=== PATIENT | male | born 1995 | race Caucasian/White ===

== ENCOUNTER 2016-12-16 00:46 | Emergency (ER) | payer MEDICAID ==
--- NOTE | 2016-12-16 01:19 | EDM.PDOC ---
ED HPI RENAL/ - General Chief Complaint: Genitourinary Problem Stated Complaint: BACK PAIN Time Seen by Provider: 12/16/16 00:51 Source of Information: Reports: Patient History Limitations: Reports: No limitations - History of Present Illness INITIAL COMMENTS - FREE TEXT/NARRATIVE: HISTORY AND PHYSICAL: History of present illness: [Weight 1-year-old male with a past medical history of anxiety previously treated now presents emergency department complaining of gross hematuria. Patient has been in his baseline state of health until around 6 PM when he appreciated urine he states looked like red Herrera-Aid. He denies any back or abdominal pain however he reports very mild dysuria/ penile burning with urination. Patient has normal urinary frequency without urgency and is in no flank pain whatsoever per no fevers chills sweats or shaking chills. He is not immunocompromised in any way. No prior history of UTI urinary workup or abnormality. Patient has no history of coagulopathy or blood thinners and no abdominal or genitourinary trauma recently. Review of systems: As per history of present illness and below otherwise all systems reviewed and negative. Past medical history: As per history of present illness and as reviewed below otherwise noncontributory. Surgical history: As per history of present illness and as reviewed below otherwise noncontributory. Social history: No reported history of drug or alcohol abuse. Family history: As per history of present illness and as reviewed below otherwise noncontributory. Physical exam: Well-appearing 21-year-old male no acute distress no pallor alert communicative, keeps eyes closed during history of present illness and exam HEENT: Atraumatic, normocephalic, pupils reactive, negative for conjunctival pallor or scleral icterus, mucous membranes moist, throat clear, neck supple, nontender, trachea midline. Lungs: Clear to auscultation, breath sounds equal bilaterally, chest nontender. Heart: S1S2, regular, negative for clicks, rubs, or JVD. Abdomen: Soft, nondistended, nontender. Negative for masses or hepatosplenomegaly. Negative for costovertebral tenderness. Pelvis: Stable nontender. Genitourinary: Normal external genitalia. Nontender no penile discharge or bleeding. No swelling or skin abnormality. Rectal: Deferred. Extremities: Atraumatic, negative for cords or calf pain. Neurovascular unremarkable. Neuro: Awake, alert, oriented. Cranial nerves grossly unremarkable. Cerebellum unremarkable. Motor and sensory unremarkable throughout. Exam nonfocal. Diagnostics: [] Therapeutics: [] Impression: [] Plan: [] Definitive disposition and diagnosis as appropriate pending reevaluation and review of above. - Related Data Allergies/ADRs: Allergies Allergy/AdvReac Type Severity Reaction Status Date / Time No Known Allergies Allergy Verified 12/16/16 00:57 Home Meds: Home Meds . [No Known Home Meds] 08/18/15 [History] Past Medical History - Past Health History Medical/Surgical History: Denies Medical/Surgical History HEENT History: Reports: None Cardiovascular History: Reports: None Other Cardiovascular History: " heart condition" Respiratory History: Reports: None Gastrointestinal History: Reports: Cholelithiasis Other Gastrointestinal History: occasional heartburn Genitourinary History: Reports: None Musculoskeletal History: Reports: None Neurological History: Reports: None Psychiatric History: Reports: Anxiety Endocrine/Metabolic History: Reports: None Hematologic History: Reports: None Immunologic History: Reports: None Oncologic (Cancer) History: Reports: None Dermatologic History: Reports: None - Infectious Disease History Infectious Disease History: Reports: None - Past Surgical History Head Surgeries/Procedures: Reports: None Social & Family History - Family History Family Medical History: Noncontributory - Tobacco Use Smoking Status *Q: Former Smoker Years of Tobacco use: 2 Packs/Tins Daily: 0.2 - Caffeine Use Caffeine Use: Reports: Soda Caffeine Use Comment: 1-2 drinks/day - Alcohol Use Days Per Week of Alcohol Use: 5 Number of Drinks Per Day: 2 Total Drinks Per Week: 10 - Recreational Drug Use Recreational Drug Use: No Drug Use in Last 12 Months: No ED ROS GENERAL - Review of Systems Review Of Systems: See Below (For history of present illness) ED EXAM, RENAL/ - Physical Exam Exam: See Below (Per history of present illness) Course - Vital Signs Text/Narrative:: Signs and symptoms consistent with gross hematuria the patient with no prior urinary history. No gross hematuria in the emergency department. Vital signs are unremarkable patient is well-appearing with a nontender abdomen and no CVA tenderness. History and exam are not consistent with ureteral colic at all. He has no evidence of genital trauma. Patient is not quite for peptic on no blood thinners. UA as large occult microscopic blood, not consistent with infection. Hemoglobin unremarkable. No further workup or treatment indicated. Patient aware to follow up with PCP for reevaluation of urinalysis and referral to urology as needed patient given the number of Dr. Kimberly Holder, the urologist to arrange outpatient followup. No Further workup or treatment indicated at this time, Patient agrees with outpatient followup. Strict return precautions given Last Recorded V/S: Last Vital Signs Temp 36.4 C 12/16/16 00:57 Pulse 86 12/16/16 00:57 Resp 16 12/16/16 00:57 BP 132/71 12/16/16 00:57 Pulse Ox 99 12/16/16 00:57 - Orders/Labs/Meds Labs: Laboratory Tests 12/16/16 12/16/16 12/16/16 Range/Units 01:00 01:00 01:05 Hgb 16.7 (13.0-17.0) g/dL Hct 48.0 (38.0-50.0) % Sodium 145 (136-146) mmol/L Potassium 3.6 (3.5-5.1) mmol/L Chloride 109 (98-110) mmol/L Carbon Dioxide 23 (21-31) mmol/L BUN 9 (6.0-23.0) mg/dL Creatinine 0.9 (0.6-1.5) mg/dL Est Cr Clr Drug Dosing 108.17 mL/min Estimated GFR (MDRD) > 60.0 ml/min Glucose 76 (60-110) mg/dL Calcium 9.4 (8.8-10.8) mg/dL Urine Color DARK YELLOW Urine Appearance SLT CLOUDY Urine pH 5.5 (5.0-8.0) Ur Specific [place] 1.020 (1.001-1.035) Urine Protein TRACE (NEGATIVE) mg/dL Urine Glucose (UA) NEGATIVE (NEGATIVE) mg/dL Urine Ketones NEGATIVE (NEGATIVE) mg/dL Urine Occult Blood LARGE H (NEGATIVE) Urine Nitrite NEGATIVE (NEGATIVE) Urine Bilirubin NEGATIVE (NEGATIVE) Urine Urobilinogen 0.2 (<2.0) EU/dL Ur Leukocyte Esterase NEGATIVE (NEGATIVE) Urine RBC TOO NUMBEROUS TO CT (0-2/HPF) Urine WBC 0-3 (0-5/HPF) Ur Epithelial Cells RARE (NONE-FEW) Urine Bacteria OCCASIONAL (NEGATIVE) Departure - Departure Time of Disposition: 02:03 Disposition: Home, Self-Care 01 Condition: good Clinical Impression: Hematuria Instructions: Hematuria, Adult Referrals: PCP,None [Primary Care Provider] - Forms: ED Department Discharge Additional Instructions: Signs and symptoms consistent with mild gross hematuria now microscopic in a stable patient is well-appearing with no anemia. No evidence of infection or trauma. Hemoglobin and hematocrit pending to rule out evolving anemia basic metabolic panel unremarkable with normal kidney function. No further workup or treatment indicated at this time. Patient aware of critical importance of close follow up with PCP for reevaluation and repeat urinalysis and referral to urology as needed for further workup and definitive diagnosis. He and his spouse agree with outpatient followup. Strict return precautions given. The following information is given to patients seen in the emergency department who are being discharged to home. This information is to outline your options for follow-up care. We provide all patients seen in our emergency department with a follow-up referral. The need for follow-up, as well as the timing and circumstances, are variable depending upon the specifics of your emergency department visit. If you don't have a primary care physician on staff, we will provide you with a referral. We always advise you to contact your personal physician following an emergency department visit to inform them of the circumstance of the visit and for follow-up with them and/or the need for any referrals to a consulting specialist. The emergency department will also refer you to a specialist when appropriate. This referral assures that you have the opportunity for follow-up care with a specialist. All of these measure are taken in an effort to provide you with optimal care, which includes your follow-up. Under all circumstances we always encourage you to contact your private physician who remains a resource for coordinating your care. When calling for follow-up care, please make the office aware that this follow-up is from your recent emergency room visit. If for any reason you are refused follow-up, please contact the [facility] Emergency Department at and asked to speak to the emergency department charge nurse.
[2016-12-16 02:00] LABS: CHLORIDE,CL 109 mmol/L (98-110); SODIUM,NA 145 mmol/L (136-146)
[2016-12-16 02:28] VITALS: BP 106/60
== END 2016-12-16 02:25 | disposition home or self-care (01) ==
LOC: MW.ED 00:46
DX: R31.0 Gross hematuria (principal); F41.9 Anxiety disorder, unspecified; Z87.891 Personal history of nicotine dependence
CPT/HCPCS: 36415; 80048; 81001; 85014; 85018; 99282; 99283

== ENCOUNTER → 2016-12-17 | Outpatient (CLI) | payer MEDICAID ==
[~2016-12-17] MED LIST: Iopamidol 755 MG/ML 500 ML Multipack Bottle IVPUSH STA
[2016-12-17 14:10] LABS: CHLORIDE,CL 105 mmol/L (98-110); SODIUM,NA 142 mmol/L (136-146)
--- NOTE | 2016-12-17 16:01 | CT ---
CT of the abdomen and pelvis with contrast. HISTORY: Generalized abdominal pain TECHNIQUE: Axial CT images were obtained of the abdomen and pelvis following administration of 100 m L of Isovue-370 in left antecubital fossa without complication. Coronal and sagittal reconstructions obtained. FINDINGS: The lung bases are clear, no pleural effusion. The liver, spleen, adrenal glands, and pancreas appear normal. Cholelithiasis without evidence of ch olecystitis. No bulky retroperitoneal lymphadenopathy or abdominal ascites. There is a 3 to 4 mm stone at the right ureteropelvic junction with minimal proximal hydronephrosis. The kidneys enhance and function symmetrically. The large and small bowel are normal in caliber without evidence of obstruction. The appendix is nor mal. The urinary bladder is normal. There is no bulky pelvic lymphadenopathy or free pelvic fluid. There are no suspicious osseous abnormalities identified. IMPRESSION: 1. There is a 3 to 4 mm stone within the proximal right ureter with minimal proximal hydronephrosis. 2. Cholelithiasis without evidence of cholecystitis.
== END ==
LOC: MW.CHRC 13:30
PROVIDERS: ATTEND Family Medicine
DX: R31.9 Hematuria, unspecified (principal); R10.84 Generalized abdominal pain; K80.20 Calculus of gallbladder without cholecystitis without obstruction
CPT/HCPCS: 36415; 74177; 80053; 81001; 82150; 82550; 83690; 85025; Q9967

== ENCOUNTER → 2017-01-03 | Outpatient (CLI) | payer MEDICAID ==
--- NOTE | 2017-01-03 16:18 | CT ---
EXAM DATE: 01/03/17 PATIENT'S AGE: 21 Patient: SAHARA CHAVEZ Facility: [place], [place] Site . Site : 1995 Study: CT Abdomen/Pelvis [id number]/10/2017 12:34:01 PM Ordering Physician: Kami Love Final Report: INDICATION: urinary calculus CT ABDOMEN AND PELVIS WITHOUT CONTRAST TECHNIQUE: Multidetector CT imaging was performed through the abdomen and pelvis without intravenous contrast administration. Coronal and sagittal reconstructions were generated. COMPARISON: 12/17/2016 CT abdomen and pelvis. FINDINGS: Lower chest: Lung bases are clear. Liver: Within normal limits. Gallbladder and bile ducts: Cholelithiasis, as before, without evidence of cholecystitis. No biliary dilation identified. Pancreas: Unremarkable. Spleen: Normal. Adrenals: No nodules or masses. Kidneys, ureters, and urinary bladder: The 3-4 millimeter stone in the proximal right ureter has moved approximately 2 centimeters inferiorly compared to the previous exam. There has been no significant change in very mild dilation of the right intrarenal collecting system and right renal pelvis. A tiny nonobstructing 2 millimeter stone is noted in the lower pole of the right kidney. No renal masses or left hydronephrosis. No bladder mass or definite wall thickening. Gastrointestinal tract: Normal caliber bowel without wall thickening. The appendix is normal. Vascular structures: Normal for age. Peritoneum: No free air, abscess, or significant free fluid. Lymph nodes: No pathologically enlarged nodes identified. Reproductive organs: No pelvic masses. Bones: Normal for age. IMPRESSION: 1. Slight inferior movement of mildly obstructing 3-4 millimeter stone within the proximal right ureter. Unchanged mild right hydronephrosis. 2. Nonobstructing 2 millimeter right intrarenal stone. 3. Cholelithiasis. JUDY NEFF MD [employer] Dictated by Seymour Neff MD @ 01/03/2017 12:55:58 PM Dictated by: Seymour Neff MD @ 01/03/2017 12:56:40 (Electronic Signature) Report Signed by Proxy and Original Signed Document filed in the Medical Record. [facility]
== END ==
LOC: MW.CHFP 10:25
PROVIDERS: ATTEND Nurse Practitioner Family
DX: N20.9 Urinary calculus, unspecified (principal); N20.1 Calculus of ureter; N13.30 Unspecified hydronephrosis; N20.0 Calculus of kidney; K80.20 Calculus of gallbladder without cholecystitis without obstruction
CPT/HCPCS: 36415; 74176; 74176-26; 81001; 85025

== ENCOUNTER 2017-01-11 07:59 | Day surgery (SDC) | payer SELFPAY ==
[~2017-01-11 07:59] MED LIST changes: -Iopamidol 755 MG/ML 500 ML Multipack Bottle IVPUSH STA; +Lactated Ringers 1,000 ML IV SCH; +ceFAZolin 1 GM in Premix Bag 1 BAG IV ONE
--- NOTE | 2017-01-11 09:06 | PCM.PREANE ---
Preanesthetic Assessment - Procedure Proposed Procedure: cystoscopy, ureteroscopy with stone retrieval - Anesthesia/Transfusion/Family Hx Anesthesia History: No Prior Anesthesia Family History of Anesthesia Reaction: No Transfusion History: No Prior Transfusion(s) Intubation History: Unknown - Review of Systems General: Other (pain due to stone - on PO meds for last weeks) Pulmonary: No Symptoms Cardiovascular: No Symptoms Gastrointestinal: No symptoms Neurological: No Symptoms Other: Reports: Anxiety - Physical Assessment O2 Sat by Pulse Oximetry: 100 Respiratory Rate: 18 Vital Signs: Last Vital Signs Temp 99.0 F 01/11/17 08:30 Pulse 81 01/11/17 08:30 Resp 18 01/11/17 08:30 BP 113/63 01/11/17 08:30 Pulse Ox 100 01/11/17 08:30 Height: 6 ft Weight: 130 lb ASA Class: 2 Mental Status: Alert & Oriented x3 Airway Class: Mallampati = 1 Dentition: Reports: Normal Dentition Thyro-Mental Finger Breadths: 3 Mouth Opening Finger Breadths: 3 ROM/Head Extension: Full Lungs: Clear to auscultation, Normal respiratory effort Cardiovascular: Regular Rate, Regular Rhythm, No Murmurs - Allergies Allergies/Adverse Reactions: Allergies Allergy/AdvReac Type Severity Reaction Status Date / Time No Known Allergies Allergy Verified 01/10/17 16:54 - Blood Blood Available: No Product(s) Available: None - Acknowledgements Anesthesia Type Planned: General Anesthesia (LMA vs OETT) Pt an Appropriate Candidate for the Planned Anesthesia: Yes Alternatives and Risks of Anesthesia Discussed w Pt/Guardian: Yes Pt/Guardian Understands and Agrees with Anesthesia Plan: Yes Additional Comments: Patients in another hospital having urinary tract problems surgically treated today. PreAnesthesia Questionnaire - Past Health History Medical/Surgical History: Denies Medical/Surgical History HEENT History: Reports: None Cardiovascular History: Reports: None Other Cardiovascular History: " heart condition" Respiratory History: Reports: None Gastrointestinal History: Reports: None Other Gastrointestinal History: occasional heartburn Genitourinary History: Reports: None Musculoskeletal History: Reports: None Neurological History: Reports: None Psychiatric History: Reports: Anxiety Endocrine/Metabolic History: Reports: None Hematologic History: Reports: None Immunologic History: Reports: None Oncologic (Cancer) History: Reports: None Dermatologic History: Reports: None - Infectious Disease History Infectious Disease History: Reports: None - Past Surgical History Head Surgeries/Procedures: Reports: None HEENT Surgical History: Reports: None Cardiovascular Surgical History: Reports: None Respiratory Surgical History: Reports: None GI Surgical History: Reports: None Male Surgical History: Reports: None Endocrine Surgical History: Reports: None Neurological Surgical History: Reports: None Musculoskeletal Surgical History: Reports: None Oncologic Surgical History: Reports: None Dermatological Surgical History: Reports: None - SUBSTANCE USE Smoking Status *Q: Former Smoker Tobacco Use Within Last Twelve Months: Cigarettes Days Per Week of Alcohol Use: 5 Number of Drinks Per Day: 2 Total Drinks Per Week: 10 Recreational Drug Use History: No - HOME MEDS Home Medications: Home Meds Tamsulosin HCl [Flomax] 0.4 mg PO DAILY 01/10/17 [History] oxyCODONE HCl/Acetaminophen [Percocet 5-325 mg Tablet] 1 tab PO ASDIRECTED PRN 01/10/17 [History] - CURRENT (IN HOUSE) MEDS Current Meds: Current Medications Lactated Ringer's (Ringers, Lactated) 1,000 mls @ 100 mls/hr IV ASDIRECTED [facility] Discontinued Medications Cefazolin Sodium/Dextrose 1 gm (/ Premix) 50 mls @ 100 mls/hr IV ONCALL [facility] Stop: 01/11/17 00:30
[2017-01-11] MEDS ORDERED: Midazolam 1 MG/ML 2 ML SDV ONE (09:07)
[2017-01-11] MEDS ORDERED: Propofol 200 MG/20 ML SDV ONE (09:07)
[2017-01-11] MEDS ORDERED: Lidocaine 2% 5 ML SDV ONE (09:07)
[2017-01-11] MEDS ORDERED: fentaNYL 250 MCG/5 ML SDV ONE (09:07)
[2017-01-11] MEDS ORDERED: Iopamidol 408 MG/ML 50 ML SDV ONE (10:07)
[2017-01-11] MEDS: fentaNYL 100 MCG/2 ML SDV IVPUSH PRN ×4 (11:30→11:50)
--- NOTE | 2017-01-11 11:55 | PCM.POSTAN ---
POST ANESTHESIA ASSESSMENT - MENTAL STATUS Mental Status: alert, oriented - RESPIRATORY Respiratory Status: respiratory rate WNL, airway patent, O2 saturation stable - CARDIOVASCULAR CV Status: pulse rate WNL, blood pressure stable - GASTROINTESTINAL GI Status: no symptoms - PAIN Pain Score: 3 (stent irritation) - POST OP HYDRATION Hydration Status: adequate & stable - OBSERVATIONS Free Text/Narrative:: Transfer to phase II recovery.
[2017-01-11] MEDS ORDERED: Acetaminophen/HYDROcodone 325-10 MG Tab PO PRN (12:15)
--- NOTE | 2017-01-11 13:29 | PCM48HPAN ---
Post Anesthesia Note - EVALUATION WITHIN 48HRS OF ANESTHETIC Vital Signs in Normal Range: Yes Patient Participated in Evaluation: Yes Respiratory Function Stable: Yes Airway Patent: Yes Cardiovascular Function Stable: Yes Hydration Status Stable: Yes Pain Control Satisfactory: Yes (Understands he will need some analgesia for the next few days) Nausea and Vomiting Control Satisfactory: Yes Mental Status Recovered: Yes - COMMENTS/OBSERVATIONS Free Text/Narrative:: Mother here to take him home.
--- NOTE | 2017-01-11 13:46 | CR ---
EXAMINATION: Ureteroscopy HISTORY: Stent placement COMPARISON: CT dated 01/03/2017 TECHNIQUE: Single image provided FINDINGS/IMPRESSION: Single operative control films demonstrate selection of the right renal collect ing system. There is a faint calcification projecting over the lower pole of the right kidney.
[2017-01-11 13:55] VITALS: BP 121/80
--- NOTE | 2017-01-11 15:01 | OR ---
SURGEON: Kimberly Holder M.D. DATE OF PROCEDURE: 01/11/2017 PREOPERATIVE DIAGNOSIS: Right upper ureteral stone. POSTOPERATIVE DIAGNOSIS: Right renal pelvis stone. PROCEDURES: Cystoscopy, double-J stent placement. DESCRIPTION OF PROCEDURE: The patient was given general anesthesia, placed in dorsal lithotomy position, prepped and draped in sterile drapes. Cystourethroscopy was done that was normal. A guidewire was advanced in the right ureter all the way up into the renal pelvis over which a 6-Micron[place] 26 cm double-J stent was placed. Position was confirmed with fluoroscopy. The bladder was emptied and the patient was moved to recovery room in good condition. PLAN: I will bring him to the office next week and schedule his next procedure which would have to be ureteroscopy and stone removal. CHIDI / EVI /[id number]
== END 2017-01-11 13:30 | disposition home or self-care (01) ==
LOC: MW.SDS 07:59
PROVIDERS: ATTEND Urology
PROC: 0T768DZ Dilation of Right Ureter with Intraluminal Device, Via Natural or Artificial Opening Endoscopic (ICD-10-PCS; principal; 2017-01-11)
DX: N20.1 Calculus of ureter (principal); F41.9 Anxiety disorder, unspecified; Z87.891 Personal history of nicotine dependence; Z79.899 Other long term (current) drug therapy
CPT/HCPCS: 52332; 76000; A9270; C1769; C2625; J0690; J2250; J3010; J7120; 00910; J2704; Q9966

== ENCOUNTER 2017-01-20 06:25 | Day surgery (SDC) | payer SELFPAY ==
[~2017-01-20 06:25] MED LIST changes: +Ciprofloxacin in D5W 400 MG in Premix Bag 1 BAG IV SCH; -ceFAZolin 1 GM in Premix Bag 1 BAG IV ONE
--- NOTE | 2017-01-20 07:18 | PCM.PREANE ---
Preanesthetic Assessment - Anesthesia/Transfusion/Family Hx Anesthesia History: Prior Anesthesia Without Reaction (Stent placement week or so ago) Family History of Anesthesia Reaction: No Transfusion History: No Prior Transfusion(s) Intubation History: Unknown - Review of Systems General: No Symptoms Pulmonary: No Symptoms Cardiovascular: No Symptoms Gastrointestinal: Abdominal pain (due to stone/stent) Neurological: No Symptoms Other: Reports: None - Physical Assessment NPO Status Date: 01/19/17 NPO Status Time: 22:00 O2 Sat by Pulse Oximetry: 100 Respiratory Rate: 16 Vital Signs: Last Vital Signs Temp 98.2 F 01/20/17 06:30 Pulse 70 01/20/17 06:30 Resp 16 01/20/17 06:30 BP 115/78 01/20/17 06:30 Pulse Ox 100 01/20/17 06:30 Height: 5 ft 11 in Weight: 129 lb ASA Class: 2 Mental Status: Alert & Oriented x3 Airway Class: Mallampati = 1 Dentition: Reports: Normal Dentition Thyro-Mental Finger Breadths: 3 Mouth Opening Finger Breadths: 3 ROM/Head Extension: Full Lungs: Clear to auscultation, Normal respiratory effort Cardiovascular: Regular Rate, Regular Rhythm, No Murmurs - Allergies Allergies/Adverse Reactions: Allergies Allergy/AdvReac Type Severity Reaction Status Date / Time No Known Allergies Allergy Verified 01/18/17 10:16 - Blood Blood Available: No Product(s) Available: None - Anesthesia Plan Pre-Op Medication Ordered: None - Acknowledgements Anesthesia Type Planned: General Anesthesia (LMA) Pt an Appropriate Candidate for the Planned Anesthesia: Yes Alternatives and Risks of Anesthesia Discussed w Pt/Guardian: Yes Pt/Guardian Understands and Agrees with Anesthesia Plan: Yes PreAnesthesia Questionnaire - Past Health History Medical/Surgical History: Denies Medical/Surgical History HEENT History: Reports: None Cardiovascular History: Reports: None Other Cardiovascular History: " heart condition" Respiratory History: Reports: None Gastrointestinal History: Reports: None Other Gastrointestinal History: occasional heartburn Genitourinary History: Reports: Renal calculus Musculoskeletal History: Reports: None Neurological History: Reports: None Psychiatric History: Reports: Anxiety Endocrine/Metabolic History: Reports: None Hematologic History: Reports: None Immunologic History: Reports: None Oncologic (Cancer) History: Reports: None Dermatologic History: Reports: None - Infectious Disease History Infectious Disease History: Reports: None - Past Surgical History Head Surgeries/Procedures: Reports: None HEENT Surgical History: Reports: None Cardiovascular Surgical History: Reports: None Respiratory Surgical History: Reports: None GI Surgical History: Reports: None Male Surgical History: Reports: None Other Male Surgeries/Procedures: cysto, placement of double J stent Endocrine Surgical History: Reports: None Neurological Surgical History: Reports: None Musculoskeletal Surgical History: Reports: None Oncologic Surgical History: Reports: None Dermatological Surgical History: Reports: None - SUBSTANCE USE Smoking Status *Q: Former Smoker Tobacco Use Within Last Twelve Months: Cigarettes Days Per Week of Alcohol Use: 5 Number of Drinks Per Day: 2 Total Drinks Per Week: 10 Recreational Drug Use History: No - HOME MEDS Home Medications: Home Meds Tamsulosin HCl [Flomax] 0.4 mg PO DAILY 01/10/17 [History] traMADol [Ultram] 50 mg PO Q6H PRN 01/18/17 [History] - CURRENT (IN HOUSE) MEDS Current Meds: Current Medications Ciprofloxacin/Dextrose 400 mg/ (Premix) 200 mls @ 200 mls/hr IV ONCALL [facility] Last Admin: 01/20/17 06:18 Dose: 200 mls/hr Lactated Ringer's (Ringers, Lactated) 1,000 mls @ 100 mls/hr IV ASDIRECTED [facility] Last Admin: 01/20/17 06:18 Dose: 100 mls/hr
[2017-01-20] MEDS ORDERED: Ondansetron 4 MG/2 ML SDV ONE (07:21)
[2017-01-20] MEDS ORDERED: Lidocaine 2% 5 ML SDV ONE (07:21)
[2017-01-20] MEDS ORDERED: fentaNYL 250 MCG/5 ML SDV ONE (07:22)
[2017-01-20] MEDS ORDERED: Propofol 200 MG/20 ML SDV ONE (07:22)
[2017-01-20] MEDS ORDERED: Midazolam 1 MG/ML 2 ML SDV ONE (07:22)
[2017-01-20] MEDS ORDERED: ePHEDrine 50 MG/ML SDV ONE (08:38)
[2017-01-20] MEDS ORDERED: Ketorolac 30 MG/ML SDV IVPUSH ONE (09:15)
[2017-01-20] MEDS: fentaNYL 100 MCG/2 ML SDV IVPUSH PRN ×4 (09:25→09:44)
[2017-01-20] MEDS ORDERED: Morphine 10 MG/ML Syringe ONE (09:55)
[2017-01-20] MEDS: Morphine 10 MG/ML Syringe IVPUSH PRN ×3 (09:57→10:12)
[2017-01-20 11:23] VITALS: BP 124/68
--- NOTE | 2017-01-20 14:08 | OR ---
SURGEON: Kimberly Holder M.D. DATE OF PROCEDURE: 01/20/2017 PREOPERATIVE DIAGNOSIS: Right ureteral stone. POSTOPERATIVE DIAGNOSIS: Right ureteral stone. PROCEDURE: Right ureteroscopy and stone removal. DESCRIPTION OF PROCEDURE: The patient was given general anesthesia, placed in dorsal lithotomy position, prepped and draped in sterile drapes. Cystourethroscopy was done. The double-J stent was removed that was on the right side. A guidewire and a Glidewire were both introduced up into the renal pelvis under fluoroscopy. The flexible ureteroscope was advanced all the way up to the stone, which was in the mid ureter. The Zero tip basket was used to snag the stone and it was pulled out relatively easily. The guidewire was still in place. The flexible ureteroscope was advanced over the guidewire, 4 additional stones in the kidney and none were visualized. With that done, the procedure was terminated and the patient was sent to recovery room in good condition. CHIDI / EVI /[id number]
--- NOTE | 2017-01-24 13:01 | CR ---
EXAMINATION: Right ureteroscopy HISTORY: Stone removal COMPARISON: Comparison CT dated 01/03/2017 TECHNIQUE: Single image FINDINGS/IMPRESSION: Operative control films demonstrate selection of the right ureter. There is a c alcification noted adjacent to the mid to proximal right ureter, likely correlating to a gallstone n oted on the prior CT.
== END 2017-01-20 11:15 | disposition home or self-care (01) ==
LOC: MW.SDS 06:25
PROVIDERS: ATTEND Urology
PROC: 0TC68ZZ Extirpation of Matter from Right Ureter, Via Natural or Artificial Opening Endoscopic (ICD-10-PCS; principal; 2017-01-20)
DX: N20.1 Calculus of ureter (principal); Z87.442 Personal history of urinary calculi; Z87.891 Personal history of nicotine dependence; Z98.890 Other specified postprocedural states; Z79.899 Other long term (current) drug therapy
CPT/HCPCS: 52352; 76000; C1769; J0744; J1885; J2250; J2270; J2405; J3010; J7120; 00910; 88300; J2704

== ENCOUNTER 2017-06-08 19:14 | Emergency (ER) | payer SELFPAY ==
--- NOTE | 2017-06-08 19:51 | EDM.PDOC ---
ED HPI GENERAL MEDICAL PROBLEM - General Chief Complaint: Fever Stated Complaint: FEVER/CONGESTION Time Seen by Provider: 06/08/17 19:46 Source of Information: Reports: Patient History Limitations: Reports: No Limitations - History of Present Illness INITIAL COMMENTS - FREE TEXT/NARRATIVE: HISTORY AND PHYSICAL: History of present illness: Patient is a 21-year-old male who presents to the emergency room today with complaints of a dry cough, fever, sinus congestion 1 week. Patient reports he has been taking [id number] sinus and cold medications without much relief. States over the past week his sinus pressure has progressively got worse. Denies any ear pain or throat pain, abdominal pain, nausea or vomiting. Denies any chest pain or shortness of breath. He does not have any previous respiratory illness. Review of systems: As per history of present illness and below otherwise all systems reviewed and negative. Past medical history: As per history of present illness and as reviewed below otherwise noncontributory. Surgical history: As per history of present illness and as reviewed below otherwise noncontributory. Social history: No reported history of drug or alcohol abuse. Family history: As per history of present illness and as reviewed below otherwise noncontributory. Physical exam: HEENT: Atraumatic, normocephalic, pupils reactive, negative for conjunctival pallor or scleral icterus, mucous membranes moist, throat clear, enlarged lymph nodes noted to anterior cervical with tenderness upon palpation, trachea midline. Tenderness to maxillosinus area bilaterally with palpation. Lungs: Clear to auscultation, breath sounds equal bilaterally, chest nontender. Heart: S1S2, regular rate and rhythm Abdomen: Soft, nondistended, nontender. Negative for masses or hepatosplenomegaly. Negative for costovertebral tenderness. Pelvis: Stable nontender. Genitourinary: Deferred. Rectal: Deferred. Extremities: Atraumatic, negative for cords or calf pain. Neurovascular unremarkable. Neuro: Awake, alert, oriented. Cranial nerves II through XII unremarkable. Cerebellum unremarkable. Motor and sensory unremarkable throughout. Exam nonfocal. Diagnostics: [] Therapeutics: [] Impression: Sinus infection Definitive disposition and diagnosis as appropriate pending reevaluation and review of above. Duration: Week(s): Location: Reports: Face Generalized Pain Score (Numeric/FACES): 7 - Related Data Allergies Allergy/AdvReac Type Severity Reaction Status Date / Time No Known Allergies Allergy Verified 01/18/17 10:16 Home Meds: Home Meds . [No Known Home Meds] 06/08/17 [History] Past Medical History - Past Health History Medical/Surgical History: Denies Medical/Surgical History HEENT History: Reports: None Cardiovascular History: Reports: None Other Cardiovascular History: " heart condition" Respiratory History: Reports: None Gastrointestinal History: Reports: None Other Gastrointestinal History: occasional heartburn Genitourinary History: Reports: Renal Calculus Musculoskeletal History: Reports: None Neurological History: Reports: None Psychiatric History: Reports: Anxiety Endocrine/Metabolic History: Reports: None Hematologic History: Reports: None Immunologic History: Reports: None Oncologic (Cancer) History: Reports: None Dermatologic History: Reports: None - Infectious Disease History Infectious Disease History: Reports: None - Past Surgical History Head Surgeries/Procedures: Reports: None HEENT Surgical History: Reports: None Cardiovascular Surgical History: Reports: None Respiratory Surgical History: Reports: None GI Surgical History: Reports: None Male Surgical History: Reports: None Other Male Surgeries/Procedures: cysto, placement of double J stent Endocrine Surgical History: Reports: None Neurological Surgical History: Reports: None Musculoskeletal Surgical History: Reports: None Oncologic Surgical History: Reports: None Dermatological Surgical History: Reports: None Social & Family History - Family History Family Medical History: Noncontributory - Tobacco Use Smoking Status *Q: Former Smoker Years of Tobacco use: 2 Packs/Tins Daily: 0.2 - Caffeine Use Caffeine Use: Reports: Soda Caffeine Use Comment: 1-2 drinks/day - Alcohol Use Days Per Week of Alcohol Use: 5 Number of Drinks Per Day: 2 Total Drinks Per Week: 10 - Recreational Drug Use Recreational Drug Use: No Drug Use in Last 12 Months: No ED ROS ENT - Review of Systems Review Of Systems: See Below ED EXAM, ENT - Physical Exam Exam: See Below Course - Vital Signs Last Recorded V/S: Last Vital Signs Temp 36.3 C 06/08/17 19:30 Pulse 84 06/08/17 19:30 Resp 18 06/08/17 19:30 BP 116/77 06/08/17 19:30 Pulse Ox 98 06/08/17 19:30 Departure - Departure Time of Disposition: 19:49 Disposition: Home, Self-Care 01 Condition: Good Clinical Impression: Sinus infection Qualifiers: Sinusitis location: maxillary Chronicity: acute Recurrence: non-recurrent Qualified Code(s): J01.00 - Acute maxillary sinusitis, unspecified - Discharge Information Referrals: PCP,None [Primary Care Provider] - Additional Instructions: The following information is given to patients seen in the emergency department who are being discharged to home. This information is to outline your options for follow-up care. We provide all patients seen in our emergency department with a follow-up referral. The need for follow-up, as well as the timing and circumstances, are variable depending upon the specifics of your emergency department visit. If you don't have a primary care physician on staff, we will provide you with a referral. We always advise you to contact your personal physician following an emergency department visit to inform them of the circumstance of the visit and for follow-up with them and/or the need for any referrals to a consulting specialist. The emergency department will also refer you to a specialist when appropriate. This referral assures that you have the opportunity for followup care with a specialist. All of these measure are taken in an effort to provide you with optimal care, which includes your followup. Under all circumstances we always encourage you to contact your private physician who remains a resource for coordinating your care. When calling for followup care, please make the office aware that this follow-up is from your recent emergency room visit. If for any reason you are refused follow-up, please contact the [facility] emergency department at and asked to speak to the emergency department charge nurse. [facility] [address] [place] [id number] 1. Please take your prescription as prescribed. Tylenol and/or ibuprofen over- the-counter as needed for pain and fever control. 2. Drink plenty of fluids and rest. 3. Follow-up with your primary care provider in the next 1-2 days. Turning to the ED as needed as discussed
[2017-06-08 20:22] VITALS: BP 110/73
== END 2017-06-08 20:26 | disposition home or self-care (01) ==
LOC: MW.ED 19:14
DX: J01.00 Acute maxillary sinusitis, unspecified (principal); Z87.442 Personal history of urinary calculi; Z96.0 Presence of urogenital implants; Z87.891 Personal history of nicotine dependence
CPT/HCPCS: 99282; 99283

== ENCOUNTER 2017-10-27 18:39 | Emergency (ER) | payer SELFPAY | END 2017-10-27 18:50 | LOC: MW.ED 18:39 | DX: Z53.21 Procedure and treatment not carried out due to patient leaving prior to being seen by health care provider (principal) ==

== ENCOUNTER 2017-10-27 20:38 | Emergency (ER) | payer SELFPAY ==
--- NOTE | 2017-10-27 21:01 | EDM.PDOC ---
ED HPI GENERAL MEDICAL PROBLEM - General Chief Complaint: Respiratory Problem Stated Complaint: PT HAS FLU SYMPTOMS Time Seen by Provider: 10/27/17 21:00 Source of Information: Reports: Patient - History of Present Illness INITIAL COMMENTS - FREE TEXT/NARRATIVE: HISTORY AND PHYSICAL: History of present illness: [Patient presents with ear pain sore throat cough and myalgias for 24-48 hours No hot potato voice drooling or trismus no nausea vomiting chills sweats no chest pain shortness breath headache dizziness or palpitation no bowel or urine symptoms ] Review of systems: As per history of present illness and below otherwise all systems reviewed and negative. Past medical history: As per history of present illness and as reviewed below otherwise noncontributory. Surgical history: As per history of present illness and as reviewed below otherwise noncontributory. Social history: No reported history of drug or alcohol abuse. Family history: As per history of present illness and as reviewed below otherwise noncontributory. Physical exam: HEENT: Atraumatic, normocephalic, pupils reactive, negative for conjunctival pallor or scleral icterus, mucous membranes moist, throat clear, neck supple, nontender, trachea midline. Moderate erythema oropharynx no exudates neck supple no meningeal sign tympanic membrane red bulging on the left with loss of landmarks rate is red no bulging loss of landmarks no mastoid tenderness right or left Lungs: Clear to auscultation, breath sounds equal bilaterally, chest nontender. Heart: S1S2, regular, negative for clicks, rubs, or JVD. Abdomen: Soft, nondistended, nontender. Negative for masses or hepatosplenomegaly. Negative for costovertebral tenderness. Pelvis: Stable nontender. Genitourinary: Deferred. Rectal: Deferred. Extremities: Atraumatic, negative for cords or calf pain. Neurovascular unremarkable. Neuro: Awake, alert, oriented. Cranial nerves II through XII unremarkable. Cerebellum unremarkable. Motor and sensory unremarkable throughout. Exam nonfocal. Diagnostics: [Influenza strep ]Chest 2 views Therapeutics: [Z-Jose L 250 mg Phenergan with codeine 2 40 mL Impression: Acute bronchitis []]Bilateral otitis media Definitive disposition and diagnosis as appropriate pending reevaluation and review of above. body aches Pain Score (Numeric/FACES): 8 - Related Data Allergies Allergy/AdvReac Type Severity Reaction Status Date / Time No Known Allergies Allergy Verified 10/27/17 20:45 Home Meds: Home Meds . [No Known Home Meds] 06/08/17 [History] Past Medical History - Past Health History Medical/Surgical History: Denies Medical/Surgical History HEENT History: Reports: None Cardiovascular History: Reports: Other (See Below) Other Cardiovascular History: " heart condition" Respiratory History: Reports: None Gastrointestinal History: Reports: Other (See Below) Other Gastrointestinal History: occasional heartburn Genitourinary History: Reports: Renal Calculus Musculoskeletal History: Reports: None Neurological History: Reports: None Psychiatric History: Reports: Anxiety Endocrine/Metabolic History: Reports: None Hematologic History: Reports: None Immunologic History: Reports: None Oncologic (Cancer) History: Reports: None Dermatologic History: Reports: None - Infectious Disease History Infectious Disease History: Reports: None - Past Surgical History Head Surgeries/Procedures: Reports: None HEENT Surgical History: Reports: None Cardiovascular Surgical History: Reports: None Respiratory Surgical History: Reports: None GI Surgical History: Reports: None Male Surgical History: Reports: Other (See Below) Other Male Surgeries/Procedures: cysto, placement of double J stent Endocrine Surgical History: Reports: None Neurological Surgical History: Reports: None Musculoskeletal Surgical History: Reports: None Oncologic Surgical History: Reports: None Dermatological Surgical History: Reports: None Social & Family History - Family History Family Medical History: Noncontributory - Tobacco Use Smoking Status *Q: Current Every Day Smoker Years of Tobacco use: 1 Packs/Tins Daily: 0.5 Second Hand Smoke Exposure: No - Caffeine Use Caffeine Use: Reports: None Caffeine Use Comment: 1-2 drinks/day - Alcohol Use Days Per Week of Alcohol Use: 5 Number of Drinks Per Day: 2 Total Drinks Per Week: 10 - Recreational Drug Use Recreational Drug Use: No Drug Use in Last 12 Months: Yes Recreational Drug Type: Reports: Marijuana/Hashish Recreational Drug Use Frequency: Weekly ED ROS GENERAL - Review of Systems Review Of Systems: ROS reveals no pertinent complaints other than HPI. ED EXAM, GENERAL - Physical Exam Exam: See Below Course - Vital Signs Last Recorded V/S: Last Vital Signs Temp 98.1 F 10/27/17 20:45 Pulse 84 10/27/17 20:45 Resp 14 10/27/17 20:45 BP 124/68 10/27/17 20:45 Pulse Ox 98 10/27/17 20:45 - Orders/Labs/Meds Orders: Active Orders 24 hr Category Date Time Status Chest 2V [CR] Stat Exams 10/27/17 21:27 Ordered CULTURE STREP A CONFIRMATION [RM] Stat Lab 10/27/17 20:50 Results STREP SCRN A RAPID W CULT CONF [RM] Stat Lab 10/27/17 20:50 Results Departure - Departure Time of Disposition: 21:34 Disposition: Home, Self-Care 01 Condition: Good Clinical Impression: Bronchitis, Otitis media - Discharge Information Referrals: PCP,None [Primary Care Provider] - Forms: ED Department Discharge Additional Instructions: The following information is given to patients seen in the emergency department who are being discharged to home. This information is to outline your options for follow-up care. We provide all patients seen in our emergency department with a follow-up referral. The need for follow-up, as well as the timing and circumstances, are variable depending upon the specifics of your emergency department visit. If you don't have a primary care physician on staff, we will provide you with a referral. We always advise you to contact your personal physician following an emergency department visit to inform them of the circumstance of the visit and for follow-up with them and/or the need for any referrals to a consulting specialist. The emergency department will also refer you to a specialist when appropriate. This referral assures that you have the opportunity for follow-up care with a specialist. All of these measure are taken in an effort to provide you with optimal care, which includes your follow-up. Under all circumstances we always encourage you to contact your private physician who remains a resource for coordinating your care. When calling for follow-up care, please make the office aware that this follow-up is from your recent emergency room visit. If for any reason you are refused follow-up, please contact the [facility] emergency department at and asked to speak to the emergency department charge nurse. - My Orders Last 24 Hours: My Active Orders 10/27/17 20:50 CULTURE STREP A CONFIRMATION [RM] Stat STREP SCRN A RAPID W CULT CONF [RM] Stat 10/27/17 21:27 Chest 2V [CR] Stat - Assessment/Plan Last 24 Hours: My Active Orders 10/27/17 20:50 CULTURE STREP A CONFIRMATION [RM] Stat STREP SCRN A RAPID W CULT CONF [RM] Stat 10/27/17 21:27 Chest 2V [CR] Stat
[2017-10-27 21:58] VITALS: BP 127/73
--- NOTE | 2017-10-28 17:29 | CR ---
EXAM DATE: 10/27/17 PATIENT'S AGE: 22 Patient: SAHARA CHAVEZ Facility: [place], [place] Site . Site : 1995 Study: XRay Chest [id number] 9:41:11 PM Ordering Physician: Lazaro Davey Final Report: INDICATION: Chest pain and shortness of breath. CHEST, PA AND LATERAL Upright PA and lateral radiographs of the chest were performed. Comparison: No previous studies are currently available for comparison. The lungs appear clear and there are no pleural effusions. Heart size and pulmonary vasculature appear normal. Visualized bones show no significant findings. IMPRESSION: No acute intrathoracic abnormality identified. JUDY ANDERSON MD [employer] Dictated by: Seymour Anderson MD @ 10/27/2017 21:45:01 (Electronic Signature) Report Signed by Proxy. GUTH[facility] CORNING HOSPITALChristopher
== END 2017-10-27 22:00 | disposition home or self-care (01) ==
LOC: MW.ED 20:38
DX: H66.93 Otitis media, unspecified, bilateral (principal); J20.9 Acute bronchitis, unspecified; F17.210 Nicotine dependence, cigarettes, uncomplicated
CPT/HCPCS: 71046; 71046-26; 87081; 87804; 87880; 99283

== ENCOUNTER 2017-12-30 14:58 | Emergency (ER) | payer SELFPAY ==
--- NOTE | 2017-12-30 15:48 | EDM.PDOC ---
ED HPI GENERAL MEDICAL PROBLEM - General Chief Complaint: ENT Problem Stated Complaint: FEVER/HEADACHE Time Seen by Provider: 12/30/17 15:07 Source of Information: Reports: Patient History Limitations: Reports: No Limitations - History of Present Illness INITIAL COMMENTS - FREE TEXT/NARRATIVE: History of present illness: []Patient has had 3 days of sore throat, fevers, ear pain, congestion, cough and headaches. In terms had no vomiting abdominal pain diarrhea. Review of systems: As per history of present illness and below otherwise all systems reviewed and negative. Past medical history: As per history of present illness and as reviewed below otherwise noncontributory. Surgical history: As per history of present illness and as reviewed below otherwise noncontributory. Social history: No reported history of drug or alcohol abuse. Family history: As per history of present illness and as reviewed below otherwise noncontributory. Physical exam: General: Well developed, well nourished in NAD HEENT: Atraumatic, normocephalic, pupils reactive, negative for conjunctival pallor or scleral icterus, mucous membranes moist, throat erythematous, neck supple, nontender, trachea midline. No adenopathy Lungs: Clear to auscultation, no rhonchi breath sounds equal bilaterally, chest nontender. Heart: S1S2, regular, negative for clicks, rubs, or JVD. Abdomen: Soft, nondistended, nontender. Negative for masses or hepatosplenomegaly. Negative for costovertebral tenderness. Pelvis: Stable nontender. Genitourinary: Deferred. Rectal: Deferred. Extremities: Atraumatic, negative for cords or calf pain. Neurovascular unremarkable. Neuro: Awake, alert, oriented. Cranial nerves II through XII unremarkable. Cerebellum unremarkable. Motor and sensory unremarkable throughout. Exam nonfocal. Diagnostics: []Rapid strep negative Therapeutics: [] Impression: []Viral URI Plan: []Increase fluids, Tylenol Motrin for symptomatic relief follow-up with PMD return if symptoms worsen or change Definitive disposition and diagnosis as appropriate pending reevaluation and review of above. Throat Pain Score (Numeric/FACES): 7 - Related Data Allergies Allergy/AdvReac Type Severity Reaction Status Date / Time No Known Allergies Allergy Verified 12/30/17 15:10 Home Meds: Home Meds . [No Known Home Meds] 06/08/17 [History] Past Medical History - Past Health History Medical/Surgical History: Denies Medical/Surgical History HEENT History: Reports: None Cardiovascular History: Reports: Other (See Below) Other Cardiovascular History: " heart condition" Respiratory History: Reports: None Gastrointestinal History: Reports: Other (See Below) Other Gastrointestinal History: occasional heartburn Genitourinary History: Reports: Renal Calculus Musculoskeletal History: Reports: None Neurological History: Reports: None Psychiatric History: Reports: Anxiety Endocrine/Metabolic History: Reports: None Hematologic History: Reports: None Immunologic History: Reports: None Oncologic (Cancer) History: Reports: None Dermatologic History: Reports: None - Infectious Disease History Infectious Disease History: Reports: None - Past Surgical History Head Surgeries/Procedures: Reports: None HEENT Surgical History: Reports: None Cardiovascular Surgical History: Reports: None Respiratory Surgical History: Reports: None GI Surgical History: Reports: None Male Surgical History: Reports: Other (See Below) Other Male Surgeries/Procedures: cysto, placement of double J stent Endocrine Surgical History: Reports: None Neurological Surgical History: Reports: None Musculoskeletal Surgical History: Reports: None Oncologic Surgical History: Reports: None Dermatological Surgical History: Reports: None Social & Family History - Family History Family Medical History: Noncontributory - Tobacco Use Smoking Status *Q: Current Every Day Smoker Years of Tobacco use: 4 Packs/Tins Daily: 0.2 Second Hand Smoke Exposure: No - Caffeine Use Caffeine Use: Reports: None Caffeine Use Comment: 1-2 drinks/day - Alcohol Use Days Per Week of Alcohol Use: 5 Number of Drinks Per Day: 2 Total Drinks Per Week: 10 - Recreational Drug Use Recreational Drug Use: No Drug Use in Last 12 Months: Yes Recreational Drug Type: Reports: Marijuana/Hashish Recreational Drug Use Frequency: Weekly ED ROS ENT - Review of Systems Review Of Systems: See Below (See history of present illness) ED EXAM, ENT - Physical Exam Exam: See Below (See history of present illness) Course - Vital Signs Last Recorded V/S: Last Vital Signs Temp 98.0 F 12/30/17 15:07 Pulse 88 12/30/17 16:10 Resp 18 12/30/17 16:10 BP 107/61 12/30/17 16:10 Pulse Ox 98 12/30/17 16:10 - Orders/Labs/Meds Orders: Active Orders 24 hr Category Date Time Status CULTURE STREP A CONFIRMATION [RM] Stat Lab 12/30/17 15:22 Results STREP SCRN A RAPID W CULT CONF [RM] Stat Lab 12/30/17 15:22 Ordered Departure - Departure Time of Disposition: 15:47 Disposition: Home, Self-Care 01 Condition: Good Clinical Impression: Viral syndrome, Viral URI - Discharge Information Instructions: Upper Respiratory Infection, Adult, [id number] Referrals: PCP,None [Primary Care Provider] - Forms: ED Department Discharge Additional Instructions: The following information is given to patients seen in the emergency department who are being discharged to home. This information is to outline your options for follow-up care. We provide all patients seen in our emergency department with a follow-up referral. The need for follow-up, as well as the timing and circumstances, are variable depending upon the specifics of your emergency department visit. If you don't have a primary care physician on staff, we will provide you with a referral. We always advise you to contact your personal physician following an emergency department visit to inform them of the circumstance of the visit and for follow-up with them and/or the need for any referrals to a consulting specialist. The emergency department will also refer you to a specialist when appropriate. This referral assures that you have the opportunity for follow-up care with a specialist. All of these measure are taken in an effort to provide you with optimal care, which includes your follow-up. Under all circumstances we always encourage you to contact your private physician who remains a resource for coordinating your care. When calling for follow-up care, please make the office aware that this follow-up is from your recent emergency room visit. If for any reason you are refused follow-up, please contact the [facility] Emergency Department at and asked to speak to the emergency department charge nurse. Increase fluids Tylenol and Motrin for symptomatic relief follow-up with primary care return if symptoms worsen or change. [facility] [address] [place] [id number] - My Orders Last 24 Hours: My Active Orders 12/30/17 15:22 CULTURE STREP A CONFIRMATION [RM] Stat STREP SCRN A RAPID W CULT CONF [RM] Stat - Assessment/Plan Last 24 Hours: My Active Orders 12/30/17 15:22 CULTURE STREP A CONFIRMATION [RM] Stat STREP SCRN A RAPID W CULT CONF [RM] Stat
[2017-12-30 16:12] VITALS: BP 107/61
== END 2017-12-30 16:10 | disposition home or self-care (01) ==
LOC: MW.ED 14:58
DX: J06.9 Acute upper respiratory infection, unspecified (principal); B34.9 Viral infection, unspecified; F17.210 Nicotine dependence, cigarettes, uncomplicated
CPT/HCPCS: 87081; 87880; 99283

== ENCOUNTER 2018-05-22 21:52 | Emergency (ER) | payer SELFPAY ==
--- NOTE | 2018-05-22 21:56 | EDM.PDOC ---
ED HPI GENERAL MEDICAL PROBLEM - General Stated Complaint: PAIN IN LOWER BACK Time Seen by Provider: 05/22/18 21:56 Source of Information: Reports: Patient History Limitations: Reports: No Limitations - History of Present Illness INITIAL COMMENTS - FREE TEXT/NARRATIVE: HISTORY AND PHYSICAL: History of present illness: 22-year-old male presenting to Emergency department with chief complaint of right back pain intermittently 1 day. Patient states that today he began have extreme right back pain that he describes as sharp and throbbing. It starts in the back and wraps around to the front of his abdomen. Pain is currently a 8/10. Does admit to a history of kidney stones and had a stent placed roughly 1 year ago. Denies any hematuria, dysuria, or urgency. Does feel like he's been having some fever and chills but no specific temp. Has had some episodes of nausea without vomiting. Denies any other past medical history. Denies knowing what time stones he had. States that he did see Dr. Holder previously for this and in discussion sounds like he had lithotripsy. States that his been having this back pain on and off for the past year. He has been seen in the emergency department multiple times for similar complaints but has declined further investigation other than an urinalysis. On exam patient has right CVA tenderness. CBC and lipase unremarkable. Patient did have mild hypokalemia at 3.2 but no other abnormalities on CMP. 2350: CT abdomen and pelvis revealed small bilateral nonobstructing intrarenal stones with no ureteral stones or hydronephrosis. In addition there was cholelithiasis without significant evidence of cholecystitis. Review of systems: As per history of present illness and below otherwise all systems reviewed and negative. Past medical history: As per history of present illness and as reviewed below otherwise noncontributory. Surgical history: As per history of present illness and as reviewed below otherwise noncontributory. Social history: No reported history of drug or alcohol abuse. Family history: As per history of present illness and as reviewed below otherwise noncontributory. Physical exam: HEENT: Atraumatic, normocephalic, pupils reactive, negative for conjunctival pallor or scleral icterus, mucous membranes moist, throat clear, neck supple, nontender, trachea midline. Lungs: Clear to auscultation, breath sounds equal bilaterally, chest nontender. Heart: S1S2, regular, negative for clicks, rubs, or JVD. Abdomen: Soft, nondistended, nontender. Negative for masses or hepatosplenomegaly. Right costovertebral tenderness. Pelvis: Stable nontender. Genitourinary: Deferred. Rectal: Deferred. Extremities: Atraumatic, negative for cords or calf pain. Neurovascular unremarkable. Neuro: Awake, alert, oriented. Cranial nerves II through XII unremarkable. Cerebellum unremarkable. Motor and sensory unremarkable throughout. Exam nonfocal. Diagnostics: CBC, CMP, UA/UC, CT abdomen pelvis, lipase Therapeutics: 1 L normal saline, 30 mg Toradol IV 1, 2 mg morphine IV 1, 40 KCl Impression: Right flank pain History of nephrolithiasis with stent Hypokalemia Plan: CBC, CMP, UA, lipase were all unremarkable. CT the abdomen and pelvis showed a very small bilateral nonobstructing interureteral stones with no ureteral stones or hydronephrosis. He also had some cholelithiasis with a contracted gallbladder and some mild prominence of the gallbladder wall thickness most likely secondary to nondistention. Patient did not have any right upper quadrant pain on exam. Patient was instructed to follow-up with primary care provider and may need a right upper quadrant ultrasound in the future to investigate whether or not he may have biliary colic. This was discussed with the patient was discharged in good condition with instructions to return to the emergency department if any new or worsening symptoms. Definitive disposition and diagnosis as appropriate pending reevaluation and review of above. low back Pain Score (Numeric/FACES): 8 - Related Data Allergies Allergy/AdvReac Type Severity Reaction Status Date / Time No Known Allergies Allergy Verified 05/22/18 22:08 Home Meds: Home Meds . [No Known Home Meds] 06/08/17 [History] Past Medical History - Past Health History Medical/Surgical History: Denies Medical/Surgical History HEENT History: Reports: None Cardiovascular History: Reports: Other (See Below) Other Cardiovascular History: " heart condition" Respiratory History: Reports: None Gastrointestinal History: Reports: Other (See Below) Other Gastrointestinal History: occasional heartburn Genitourinary History: Reports: Renal Calculus Musculoskeletal History: Reports: None Neurological History: Reports: None Psychiatric History: Reports: Anxiety Endocrine/Metabolic History: Reports: None Hematologic History: Reports: None Immunologic History: Reports: None Oncologic (Cancer) History: Reports: None Dermatologic History: Reports: None - Infectious Disease History Infectious Disease History: Reports: None - Past Surgical History Head Surgeries/Procedures: Reports: None HEENT Surgical History: Reports: None Cardiovascular Surgical History: Reports: None Respiratory Surgical History: Reports: None GI Surgical History: Reports: None Male Surgical History: Reports: Other (See Below) Other Male Surgeries/Procedures: cysto, placement of double J stent Endocrine Surgical History: Reports: None Neurological Surgical History: Reports: None Musculoskeletal Surgical History: Reports: None Oncologic Surgical History: Reports: None Dermatological Surgical History: Reports: None Social & Family History - Family History Family Medical History: Noncontributory - Caffeine Use Caffeine Use: Reports: None Caffeine Use Comment: 1-2 drinks/day ED ROS GENERAL - Review of Systems Review Of Systems: ROS reveals no pertinent complaints other than HPI. ED EXAM, GENERAL - Physical Exam Exam: See Below Course - Vital Signs Last Recorded V/S: Last Vital Signs Temp 98.1 F 05/22/18 22:06 Pulse 75 05/22/18 22:06 Resp 12 05/22/18 22:06 BP 125/81 05/22/18 22:06 Pulse Ox 98 05/22/18 22:06 - Orders/Labs/Meds Orders: Active Orders 24 hr Category Date Time Status Abdomen Pelvis wo Cont [CT] Stat Exams 05/22/18 22:37 Taken CULTURE URINE [RM] Stat Lab 05/23/18 00:00 Ordered UA W/MICROSCOPIC [URIN] Stat Lab 05/23/18 00:00 Ordered Sodium Chloride 0.9% [Saline Flush] Med 05/22/18 22:37 Active 10 ml FLUSH ASDIRECTED PRN Sodium Chloride 0.9% [Saline Flush] Med 05/22/18 22:37 Active 2.5 ml FLUSH ASDIRECTED PRN Sodium Chloride 0.9% [Saline Flush] Med 05/22/18 22:37 Active 2.5 ml FLUSH ASDIRECTED PRN Saline Lock Insert [OM.PC] Stat Oth 05/22/18 22:37 Ordered Medication Orders Sodium Chloride (Saline Flush) 2.5 ml FLUSH ASDIRECTED PRN PRN Reason: Keep Vein Open Sodium Chloride (Saline Flush) 10 ml FLUSH ASDIRECTED PRN PRN Reason: Keep Vein Open Sodium Chloride (Saline Flush) 2.5 ml FLUSH ASDIRECTED PRN PRN Reason: Keep Vein Open Labs: Laboratory Tests 05/22/18 05/22/18 05/23/18 Range/Units 22:42 22:42 00:00 WBC 7.23 (4.0-11.0) K/uL RBC 5.15 (4.50-5.90) M/uL Hgb 16.1 (13.0-17.0) g/dL Hct 46.0 (38.0-50.0) % MCV 89.3 (80.0-98.0) fL MCH 31.3 (27.0-32.0) pg MCHC 35.0 (31.0-37.0) g/dL RDW Std Deviation 41.6 (28.0-62.0) fl RDW Coeff of Keenan 13 (11.0-15.0) % Plt Count 201 (150-400) K/uL MPV 10.90 (7.40-12.00) fL Neut % (Auto) 45.8 L (48.0-80.0) % Lymph % (Auto) 40.4 H (16.0-40.0) % Baldwin % (Auto) 10.9 (0.0-15.0) % Eos % (Auto) 2.5 (0.0-7.0) % Baso % (Auto) 0.4 (0.0-1.5) % Neut # (Auto) 3.3 (1.4-5.7) K/uL Lymph # (Auto) 2.9 H (0.6-2.4) K/uL Baldwin # (Auto) 0.8 (0.0-0.8) K/uL Eos # (Auto) 0.2 (0.0-0.7) K/uL Baso # (Auto) 0.0 (0.0-0.1) K/uL Nucleated RBC % 0.0 /100WBC Nucleated RBCs # 0 K/uL Sodium 139 (136-148) mmol/L Potassium 3.2 L (3.5-5.1) mmol/L Chloride 104 (98-107) mmol/L Carbon Dioxide 28.6 (21.0-32.0) mmol/L BUN 13 (7.0-18.0) mg/dL Creatinine 0.9 (0.8-1.3) mg/dL Est Cr Clr Drug Dosing 118.44 mL/min Estimated GFR (MDRD) > 60.0 ml/min Glucose 102 (74-106) mg/dL Calcium 8.8 (8.5-10.1) mg/dL Total Bilirubin 0.9 (0.2-1.0) mg/dL AST 13 L (15-37) IU/L ALT 21 (14-63) IU/L Alkaline Phosphatase 74 (46-116) U/L Total Protein 7.1 (6.4-8.2) g/dL Albumin 4.1 (3.4-5.0) g/dL Globulin 3.0 (2.0-3.5) g/dL Albumin/Globulin Ratio 1.4 (1.3-2.8) Lipase 124 (73-393) U/L Urine Color YELLOW Urine Appearance CLEAR Urine pH 6.0 (5.0-8.0) Ur Specific Benoit >= 1.030 (1.001-1.035) Urine Protein NEGATIVE (NEGATIVE) mg/dL Urine Glucose (UA) NEGATIVE (NEGATIVE) mg/dL Urine Ketones NEGATIVE (NEGATIVE) mg/dL Urine Occult Blood NEGATIVE (NEGATIVE) Urine Nitrite NEGATIVE (NEGATIVE) Urine Bilirubin NEGATIVE (NEGATIVE) Urine Urobilinogen 0.2 (<2.0) EU/dL Ur Leukocyte Esterase NEGATIVE (NEGATIVE) Urine RBC 1-3 (0-2/HPF) Urine WBC 1-4 (0-5/HPF) Ur Epithelial Cells RARE (NONE-FEW) Calcium Oxalate Crystal RARE (NEGATIVE) Amorphous Sediment FEW (NEGATIVE) Urine Bacteria FEW (NEGATIVE) Urine Mucus MODERATE (NONE-MOD) Meds: Medications Generic Name Dose Route Start Last Admin Trade Name Freq PRN Reason Stop Dose Admin Sodium Chloride 2.5 ml 05/22/18 22:37 Saline Flush FLUSH ASDIRECTED PRN Keep Vein Open Sodium Chloride 10 ml 05/22/18 22:37 Saline Flush FLUSH ASDIRECTED PRN Keep Vein Open Sodium Chloride 2.5 ml 05/22/18 22:37 Saline Flush FLUSH ASDIRECTED PRN Keep Vein Open Discontinued Medications Generic Name Dose Route Start Last Admin Trade Name Freq PRN Reason Stop Dose Admin Sodium Chloride 1,000 mls @ 999 mls/hr 05/22/18 22:37 08/27/18 22:56 Normal Saline IV 05/22/18 23:37 999 mls/hr BOLUS ONE Administration Ketorolac Tromethamine 60 mg 05/22/18 22:13 05/22/18 22:53 Toradol IM 05/22/18 22:14 Not Given ONETIME ONE Ketorolac Tromethamine 30 mg 05/22/18 22:37 05/22/18 22:57 Toradol IVPUSH 05/22/18 22:38 30 mg ONETIME ONE Administration Morphine Sulfate 2 mg 05/22/18 23:21 05/22/18 23:29 Morphine IVPUSH 05/22/18 23:22 2 mg ONETIME ONE Administration Ondansetron HCl 4 mg 05/22/18 22:37 05/22/18 22:57 Zofran IVPUSH 05/22/18 22:38 4 mg ONETIME ONE Administration Potassium Chloride 40 meq 05/22/18 23:19 05/22/18 23:28 Klor-Con M20 PO 05/22/18 23:20 40 meq ONETIME ONE Administration Departure - Departure Time of Disposition: 02:08 Disposition: Home, Self-Care 01 Condition: Good Clinical Impression: Right flank pain, History of renal stone - Discharge Information Referrals: PCP,None [Primary Care Provider] - Additional Instructions: My general discharge The following information is given to patients seen in the emergency department who are being discharged to home. This information is to outline your options for follow-up care. We provide all patients seen in our emergency department with a follow-up referral. The need for follow-up, as well as the timing and circumstances, are variable depending upon the specifics of your emergency department visit. If you don't have a primary care physician on staff, we will provide you with a referral. We always advise you to contact your personal physician following an emergency department visit to inform them of the circumstance of the visit and for follow-up with them and/or the need for any referrals to a consulting specialist. The emergency department will also refer you to a specialist when appropriate. This referral assures that you have the opportunity for follow-up care with a specialist. All of these measure are taken in an effort to provide you with optimal care, which includes your follow-up. Under all circumstances we always encourage you to contact your private physician who remains a resource for coordinating your care. When calling for follow-up care, please make the office aware that this follow-up is from your recent emergency room visit. If for any reason you are refused follow-up, please contact the [facility] Emergency Department at and asked to speak to the emergency department charge nurse. [facility] Primary Care [address] [place] [id number] [facility] Specialty Care - Urology [address] [place] [id number] Please call primary care above as we discussed and follow-up with a primary care provider. Be sure to tell them that you were seen in the emergency department and they wish for you to be followed up with as soon as possible. I have discussed in my note that further investigation of your gallbladder would be warranted. Follow-up with urology as we discussed for your kidney stones. There are no obstructions at this time however with with your history following with a urologist is warranted. Return emergency department if any new or worsening symptoms. - My Orders Last 24 Hours: My Active Orders 05/22/18 22:37 Abdomen Pelvis wo Cont [CT] Stat Sodium Chloride 0.9% [Saline Flush] 10 ml FLUSH ASDIRECTED PRN Sodium Chloride 0.9% [Saline Flush] 2.5 ml FLUSH ASDIRECTED PRN Sodium Chloride 0.9% [Saline Flush] 2.5 ml FLUSH ASDIRECTED PRN Saline Lock Insert [OM.PC] Stat 05/23/18 00:00 CULTURE URINE [RM] Stat UA W/MICROSCOPIC [URIN] Stat - Assessment/Plan Last 24 Hours: My Active Orders 05/22/18 22:37 Abdomen Pelvis wo Cont [CT] Stat Sodium Chloride 0.9% [Saline Flush] 10 ml FLUSH ASDIRECTED PRN Sodium Chloride 0.9% [Saline Flush] 2.5 ml FLUSH ASDIRECTED PRN Sodium Chloride 0.9% [Saline Flush] 2.5 ml FLUSH ASDIRECTED PRN Saline Lock Insert [OM.PC] Stat 05/23/18 00:00 CULTURE URINE [RM] Stat UA W/MICROSCOPIC [URIN] Stat
[2018-05-22] MEDS ORDERED: Ketorolac 60 MG/2 ML SDV IM ONE (22:13)
[2018-05-22] MEDS ORDERED: Sodium Chloride 0.9% 2.5 ML Syringe FLUSH PRN ×2 (22:37)
[2018-05-22] MEDS ORDERED: Ketorolac 30 MG/ML SDV IVPUSH ONE (22:37)
[2018-05-22] MEDS ORDERED: Sodium Chloride 0.9% 10 ML Syringe FLUSH PRN (22:37)
[2018-05-22] MEDS ORDERED: Sodium Chloride 0.9% 1,000 ML IV ONE (22:37)
[2018-05-22] MEDS ORDERED: Ondansetron 4 MG/2 ML SDV IVPUSH ONE (22:37)
[2018-05-22 23:08] LABS: CHLORIDE,CL 104 mmol/L (98-107); SODIUM,NA 139 mmol/L (136-148)
[2018-05-22] MEDS ORDERED: Potassium Chloride 20 MEQ Tab.ER PO ONE (23:19)
[2018-05-22] MEDS ORDERED: Morphine 2 MG/ML Syringe IVPUSH ONE (23:21)
[2018-05-23 02:51] VITALS: BP 136/79
--- NOTE | 2018-05-23 10:22 | CT ---
EXAM DATE: 05/22/18 PATIENT'S AGE: 22 Patient: SAHARA CHAVEZ Facility: [place], [place] Site . Site : 1995 Study: CT Abdomen/Pelvis wo cont [id number] 11:19:32 PM Ordering Physician: Que Florez Final Report: INDICATION: RIGHT FLANK/BACK PAIN. HX OF STONES. CT ABDOMEN AND PELVIS WITHOUT CONTRAST TECHNIQUE: Multidetector CT imaging was performed through the abdomen and pelvis without intravenous contrast administration. Coronal and sagittal reconstructions were generated. COMPARISON: 01/03/2017 CT abdomen and pelvis. FINDINGS: Lower chest: Lung bases are clear. Liver: Within normal limits. Gallbladder and bile ducts: Cholelithiasis, as before. Contracted gallbladder. Gallbladder wall prominence, possibly due to gallbladder contraction. No biliary dilation identified. Pancreas: Unremarkable. Spleen: Normal. Adrenals: No nodules or masses. Kidneys, ureters, and urinary bladder: Previously seen stone in the proximal right ureter no longer visualized. No ureteral stones or hydronephrosis currently demonstrated. A few tiny bilateral nonobstructing intrarenal stones are present, largest on the right. No bladder mass or definite wall thickening. Gastrointestinal tract: Normal caliber bowel without wall thickening. The appendix is normal. Vascular structures: Normal for age. Peritoneum: No free air, abscess, or significant free fluid. Lymph nodes: No pathologically enlarged nodes identified. Reproductive organs: No pelvic masses. Bones: Normal for age. IMPRESSION: 1. Very small bilateral nonobstructing intrarenal stones. No ureteral stones or hydronephrosis. 2. Cholelithiasis. Contracted gallbladder. Mild prominence of the gallbladder wall thickness is most likely due to nondistention of the gallbladder. Cholecystitis is considered less likely. Consider ultrasound. JUDY ANDERSON MD [employer] Dictated by Seymour Anderson MD @ 05/22/2018 11:36:56 PM Dictated by: Seymour Anderson MD @ 05/22/2018 23:37:29 (Electronic Signature) Report Signed by Proxy. [facility]
== END 2018-05-23 02:51 | disposition home or self-care (01) ==
LOC: MW.ED 21:52
DX: E87.6 Hypokalemia (principal); Z87.442 Personal history of urinary calculi
CPT/HCPCS: 36415; 74176; 80053; 81001; 83690; 85025; 87086; 96361; 96374; 96375; 99284; A9270; J1885; J2270; J2405; J7040

== ENCOUNTER 2018-05-24 15:21 | Emergency (ER) | payer SELFPAY ==
[2018-05-24 15:33] VITALS: BP 89/57
[2018-05-24] MEDS ORDERED: Sodium Chloride 0.9% 10 ML Syringe FLUSH PRN (15:48)
[2018-05-24] MEDS ORDERED: Sodium Chloride 0.9% 2.5 ML Syringe FLUSH PRN (15:48)
[2018-05-24] MEDS ORDERED: Ketorolac 30 MG/ML SDV IVPUSH ONE (15:49)
[2018-05-24] MEDS ORDERED: Sodium Chloride 0.9% 1,000 ML IV ONE ×2 (15:49→16:50)
--- NOTE | 2018-05-24 15:53 | EDM.PDOC ---
ED HPI GENERAL MEDICAL PROBLEM - General Chief Complaint: Flank Pain Stated Complaint: LOWER BACK PAIN Time Seen by Provider: 05/24/18 15:38 - History of Present Illness INITIAL COMMENTS - FREE TEXT/NARRATIVE: HISTORY AND PHYSICAL: History of present illness: The patient is a 22-year-old male who was seen here 2 days ago for flank pain and was worked up including a CT scan of the abdomen and pelvis which revealed very small bilateral nonobstructing intrarenal stones and no ureteral stones or hydronephrosis. The patient also had cholelithiasis without cholecystitis and was treated symptomatically and sent home. The patient was given IV fluids and meds and said he did feel better when he got discharge. The patient says he has not been hydrating very much since his ER visit and did not call to schedule a follow-up appointment with the urologist. He again comes in with bilateral flank pain more on the right and on the right side it radiates to his right lower quadrant. He's been eating and drinking normally and has not had fevers chills nausea vomiting or diarrhea. The patient has diclofenac he was prescribed and he is not taking that either pain. Patient describes the pain as dull and aching and upon my entry into the room he is resting comfortably in the room on his telephone. He moves easily without any distress. Review of systems: As per history of present illness and below otherwise all systems reviewed and negative. Past medical history: As per history of present illness and as reviewed below otherwise noncontributory. Surgical history: As per history of present illness and as reviewed below otherwise noncontributory. Social history: No reported history of drug or alcohol abuse. Family history: As per history of present illness and as reviewed below otherwise noncontributory. Physical exam: General: Well-developed well-nourished thin man who is nontoxic and vital signs were noted by me. He moves easily in the bed and in the ED without any distress. The patient looks very comfortable in the bed HEENT: Atraumatic, normocephalic, negative for conjunctival pallor or scleral icterus, mucous membranes moist, throat clear, neck supple, nontender, trachea midline. Lungs: Clear to auscultation, breath sounds equal bilaterally, chest nontender. Heart: S1S2, regular rate and rhythm no overt murmurs Abdomen: Soft, nondistended, nontender. Reproduce the pain on palpation Negative for masses or hepatosplenomegaly. Negative for costovertebral tenderness. Pelvis: Stable nontender. Genitourinary: Deferred. Rectal: Deferred. Extremities: Atraumatic, negative for cords or calf pain. Neurovascular unremarkable. Neuro: Awake, alert, oriented. Cranial nerves II through XII unremarkable. Cerebellum unremarkable. Motor and sensory unremarkable throughout. Exam nonfocal. Back: There are no midline step-offs in his defects of the thoracic or lumbar spine no CVA tenderness and no discrete paraspinal tenderness Diagnostics: UA CBC CMP abdominal x-ray Therapeutics: IV fluids Toradol Impression: Persistent flank pain stable Definitive disposition and diagnosis as appropriate pending reevaluation and review of above. bilateral flank Pain Score (Numeric/FACES): 9 - Related Data Allergies Allergy/AdvReac Type Severity Reaction Status Date / Time No Known Allergies Allergy Verified 05/24/18 15:33 Home Meds: Home Meds Diclofenac Potassium [Zipsor] 50 mg PO TID PRN 05/24/18 [History] Past Medical History - Past Health History Medical/Surgical History: Denies Medical/Surgical History HEENT History: Reports: None Cardiovascular History: Reports: Other (See Below) Other Cardiovascular History: " heart condition" Respiratory History: Reports: None Gastrointestinal History: Reports: Other (See Below) Other Gastrointestinal History: occasional heartburn Genitourinary History: Reports: Renal Calculus Musculoskeletal History: Reports: None Neurological History: Reports: None Psychiatric History: Reports: Anxiety Endocrine/Metabolic History: Reports: None Hematologic History: Reports: None Immunologic History: Reports: None Oncologic (Cancer) History: Reports: None Dermatologic History: Reports: None - Infectious Disease History Infectious Disease History: Reports: None - Past Surgical History Head Surgeries/Procedures: Reports: None HEENT Surgical History: Reports: None Cardiovascular Surgical History: Reports: None Respiratory Surgical History: Reports: None GI Surgical History: Reports: None Male Surgical History: Reports: Other (See Below) Other Male Surgeries/Procedures: cysto, placement of double J stent Endocrine Surgical History: Reports: None Neurological Surgical History: Reports: None Musculoskeletal Surgical History: Reports: None Oncologic Surgical History: Reports: None Dermatological Surgical History: Reports: None Social & Family History - Family History Family Medical History: Noncontributory - Tobacco Use Smoking Status *Q: Current Every Day Smoker Years of Tobacco use: 5 Packs/Tins Daily: 0.2 - Caffeine Use Caffeine Use: Reports: None Caffeine Use Comment: 1-2 drinks/day - Recreational Drug Use Recreational Drug Use: No ED ROS GENERAL - Review of Systems Review Of Systems: ROS reveals no pertinent complaints other than HPI. ED EXAM, GENERAL - Physical Exam Exam: See Below (See dictation) Course - Vital Signs Last Recorded V/S: Last Vital Signs Temp 36.6 C 05/24/18 15:30 Pulse 94 05/24/18 15:30 Resp 16 05/24/18 15:30 BP 89/57 L 05/24/18 15:30 Pulse Ox 96 05/24/18 15:30 - Orders/Labs/Meds Orders: Active Orders 24 hr Category Date Time Status UA W/MICROSCOPIC [URIN] Stat Lab 05/24/18 17:30 Ordered Sodium Chloride 0.9% [Normal Saline] 1,000 ml Med 05/24/18 16:50 Active IV STAT Sodium Chloride 0.9% [Saline Flush] Med 05/24/18 15:48 Active 10 ml FLUSH ASDIRECTED PRN Sodium Chloride 0.9% [Saline Flush] Med 05/24/18 15:48 Active 2.5 ml FLUSH ASDIRECTED PRN Saline Lock Insert [OM.PC] Stat Oth 05/24/18 15:48 Ordered Medication Orders Sodium Chloride (Normal Saline) 1,000 mls @ 999 mls/hr IV STAT ONE Stop: 05/24/18 17:50 Last Admin: 05/24/18 16:55 Dose: 999 mls/hr Sodium Chloride (Saline Flush) 10 ml FLUSH ASDIRECTED PRN PRN Reason: Keep Vein Open Sodium Chloride (Saline Flush) 2.5 ml FLUSH ASDIRECTED PRN PRN Reason: Keep Vein Open Labs: Laboratory Tests 05/24/18 05/24/18 05/24/18 Range/Units 15:58 15:58 17:30 WBC 5.99 (4.0-11.0) K/uL RBC 4.66 (4.50-5.90) M/uL Hgb 14.3 (13.0-17.0) g/dL Hct 41.8 (38.0-50.0) % MCV 89.7 (80.0-98.0) fL MCH 30.7 (27.0-32.0) pg MCHC 34.2 (31.0-37.0) g/dL RDW Std Deviation 41.8 (28.0-62.0) fl RDW Coeff of Keenan 13 (11.0-15.0) % Plt Count 188 (150-400) K/uL MPV 10.90 (7.40-12.00) fL Neut % (Auto) 51.6 (48.0-80.0) % Lymph % (Auto) 35.1 (16.0-40.0) % Cooke % (Auto) 10.2 (0.0-15.0) % Eos % (Auto) 2.8 (0.0-7.0) % Baso % (Auto) 0.3 (0.0-1.5) % Neut # (Auto) 3.1 (1.4-5.7) K/uL Lymph # (Auto) 2.1 (0.6-2.4) K/uL Cooke # (Auto) 0.6 (0.0-0.8) K/uL Eos # (Auto) 0.2 (0.0-0.7) K/uL Baso # (Auto) 0.0 (0.0-0.1) K/uL Nucleated RBC % 0.0 /100WBC Nucleated RBCs # 0 K/uL Sodium 143 (136-148) mmol/L Potassium 3.7 (3.5-5.1) mmol/L Chloride 107 (98-107) mmol/L Carbon Dioxide 30.4 (21.0-32.0) mmol/L BUN 7 (7.0-18.0) mg/dL Creatinine 0.9 (0.8-1.3) mg/dL Est Cr Clr Drug Dosing 122.42 mL/min Estimated GFR (MDRD) > 60.0 ml/min Glucose 97 (74-106) mg/dL Calcium 8.8 (8.5-10.1) mg/dL Total Bilirubin 0.5 (0.2-1.0) mg/dL AST 15 (15-37) IU/L ALT 23 (14-63) IU/L Alkaline Phosphatase 68 (46-116) U/L Total Protein 6.3 L (6.4-8.2) g/dL Albumin 3.7 (3.4-5.0) g/dL Globulin 2.6 (2.0-3.5) g/dL Albumin/Globulin Ratio 1.4 (1.3-2.8) Urine Color YELLOW Urine Appearance CLEAR Urine pH 6.0 (5.0-8.0) Ur Specific [place] 1.020 (1.001-1.035) Urine Protein NEGATIVE (NEGATIVE) mg/dL Urine Glucose (UA) NEGATIVE (NEGATIVE) mg/dL Urine Ketones NEGATIVE (NEGATIVE) mg/dL Urine Occult Blood NEGATIVE (NEGATIVE) Urine Nitrite NEGATIVE (NEGATIVE) Urine Bilirubin NEGATIVE (NEGATIVE) Urine Urobilinogen 0.2 (<2.0) EU/dL Ur Leukocyte Esterase NEGATIVE (NEGATIVE) Urine RBC 0-1 (0-2/HPF) Urine WBC 0-1 (0-5/HPF) Ur Epithelial Cells RARE (NONE-FEW) Urine Bacteria RARE (NEGATIVE) Meds: Medications Generic Name Dose Route Start Last Admin Trade Name Fernandoq PRN Reason Stop Dose Admin Sodium Chloride 1,000 mls @ 999 mls/hr 05/24/18 16:50 05/24/18 16:55 Normal Saline IV 05/24/18 17:50 999 mls/hr STAT ONE Administration Sodium Chloride 10 ml 05/24/18 15:48 Saline Flush FLUSH ASDIRECTED PRN Keep Vein Open Sodium Chloride 2.5 ml 05/24/18 15:48 Saline Flush FLUSH ASDIRECTED PRN Keep Vein Open Discontinued Medications Generic Name Dose Route Start Last Admin Trade Name Fernandoq PRN Reason Stop Dose Admin Sodium Chloride 1,000 mls @ 999 mls/hr 05/24/18 15:49 05/24/18 16:09 Normal Saline IV 05/24/18 16:49 999 mls/hr STAT ONE Administration Ketorolac Tromethamine 30 mg 05/24/18 15:49 05/24/18 16:10 Toradol IVPUSH 05/24/18 15:50 30 mg ONETIME ONE Administration Departure - Departure Time of Disposition: 17:43 Disposition: Home, Self-Care 01 Condition: Good Clinical Impression: Flank pain - Discharge Information Referrals: PCP,None [Primary Care Provider] - Forms: ED Department Discharge Additional Instructions: The following information is given to patients seen in the emergency department who are being discharged to home. This information is to outline your options for follow-up care. We provide all patients seen in our emergency department with a follow-up referral. The need for follow-up, as well as the timing and circumstances, are variable depending upon the specifics of your emergency department visit. If you don't have a primary care physician on staff, we will provide you with a referral. We always advise you to contact your personal physician following an emergency department visit to inform them of the circumstance of the visit and for follow-up with them and/or the need for any referrals to a consulting specialist. The emergency department will also refer you to a specialist when appropriate. This referral assures that you have the opportunity for followup care with a specialist. All of these measure are taken in an effort to provide you with optimal care, which includes your followup. Under all circumstances we always encourage you to contact your private physician who remains a resource for coordinating your care. When calling for followup care, please make the office aware that this follow-up is from your recent emergency room visit. If for any reason you are refused follow-up, please contact the [facility] emergency department at and ask to speak to the emergency department charge nurse. [facility] Primary care- Internal Medicine and Family [facility] [address] [place] [id number] [facility] Specialty Care-Urology [address] [place] [id number] Please contact our urologist for further care and evaluation and push hydration as we discussed and avoid caffeinated products. Use the pain medications were given the other day or [id number] ibuprofen/Tylenol. Return to ER as needed and as discussed - My Orders Last 24 Hours: My Active Orders 05/24/18 15:48 Sodium Chloride 0.9% [Saline Flush] 10 ml FLUSH ASDIRECTED PRN Sodium Chloride 0.9% [Saline Flush] 2.5 ml FLUSH ASDIRECTED PRN Saline Lock Insert [OM.PC] Stat 05/24/18 16:50 Sodium Chloride 0.9% [Normal Saline] 1,000 ml IV STAT 05/24/18 17:30 UA W/MICROSCOPIC [URIN] Stat - Assessment/Plan Last 24 Hours: My Active Orders 05/24/18 15:48 Sodium Chloride 0.9% [Saline Flush] 10 ml FLUSH ASDIRECTED PRN Sodium Chloride 0.9% [Saline Flush] 2.5 ml FLUSH ASDIRECTED PRN Saline Lock Insert [OM.PC] Stat 05/24/18 16:50 Sodium Chloride 0.9% [Normal Saline] 1,000 ml IV STAT 05/24/18 17:30 UA W/MICROSCOPIC [URIN] Stat
--- NOTE | 2018-05-24 16:11 | CR ---
EXAMINATION: Abdomen HISTORY: Pain COMPARISON: CT dated 05/22/2018 TECHNIQUE: AP images obtained. FINDINGS: There is a nonobstructive bowel gas pattern noted. There is a calcification projecting over the right upper quadrant consistent with previously demonstrated cholelithiasis. No organomegaly. Vi sualized osseous structures appear normal. IMPRESSION: 1. Cholelithiasis. 2. Otherwise unremarkable abdomen.
[2018-05-24 16:35] LABS: CHLORIDE,CL 107 mmol/L (98-107); SODIUM,NA 143 mmol/L (136-148)
== END 2018-05-24 18:05 | disposition home or self-care (01) ==
LOC: MW.ED 15:21
DX: R10.9 Unspecified abdominal pain (principal); F17.210 Nicotine dependence, cigarettes, uncomplicated
CPT/HCPCS: 36415; 74018; 80053; 81001; 85025; 96361; 96374; 99284; J1885; J7040

== ENCOUNTER 2019-02-21 15:00 | Emergency (ER) | payer OTHER ==
[2019-02-21 15:11] VITALS: BP 120/77
--- NOTE | 2019-02-21 15:42 | EDM.PDOC ---
ED HPI GENERAL MEDICAL PROBLEM - General Chief Complaint: Back Pain or Injury Stated Complaint: BACK ISSUES Time Seen by Provider: 02/21/19 15:29 - History of Present Illness INITIAL COMMENTS - FREE TEXT/NARRATIVE: HISTORY AND PHYSICAL: History of present illness: Patient 23-year-old male who presents with low back pain after lifting something at work this is left-sided is no numbness no weakness no incontinence or retention of bowel or bladder no other complaints. Review of systems: As per history of present illness and below otherwise all systems reviewed and negative. Past medical history: As per history of present illness and as reviewed below otherwise noncontributory. Surgical history: As per history of present illness and as reviewed below otherwise noncontributory. Social history: No reported history of drug or alcohol abuse. Family history: As per history of present illness and as reviewed below otherwise noncontributory. Physical exam: HEENT: Atraumatic, normocephalic, pupils reactive, negative for conjunctival pallor or scleral icterus, mucous membranes moist, throat clear, neck supple, nontender, trachea midline. Lungs: Clear to auscultation, breath sounds equal bilaterally, chest nontender. Heart: S1S2, regular, negative for clicks, rubs, or JVD. Abdomen: Soft, nondistended, nontender. Negative for masses or hepatosplenomegaly. Negative for costovertebral tenderness. Pelvis: Stable nontender. Genitourinary: Deferred. Rectal: Deferred. Extremities: Atraumatic, negative for cords or calf pain. Neurovascular unremarkable. Neuro: Awake, alert, oriented. Cranial nerves II through XII unremarkable. Cerebellum unremarkable. Motor and sensory unremarkable throughout. Exam nonfocal. Back: Patient is no vertebral body tenderness no significant spasm patient able stand on his toes and back on his heels deep tendon reflexes motor and sensory are normal Diagnostics: None Therapeutics: None Impression: #1 lumbar strain Definitive disposition and diagnosis as appropriate pending reevaluation and review of above. lower back Pain Score (Numeric/FACES): 8 - Related Data Allergies Allergy/AdvReac Type Severity Reaction Status Date / Time No Known Allergies Allergy Verified 02/21/19 15:11 Home Meds: Home Meds . [No Known Home Meds] 02/21/19 [History] Past Medical History - Past Health History Medical/Surgical History: Denies Medical/Surgical History HEENT History: Reports: None Cardiovascular History: Reports: Other (See Below) Other Cardiovascular History: " heart condition" Respiratory History: Reports: None Gastrointestinal History: Reports: Other (See Below) Other Gastrointestinal History: occasional heartburn Genitourinary History: Reports: Renal Calculus Musculoskeletal History: Reports: None Neurological History: Reports: None Psychiatric History: Reports: Anxiety Endocrine/Metabolic History: Reports: None Hematologic History: Reports: None Immunologic History: Reports: None Oncologic (Cancer) History: Reports: None Dermatologic History: Reports: None - Infectious Disease History Infectious Disease History: Reports: None - Past Surgical History Head Surgeries/Procedures: Reports: None HEENT Surgical History: Reports: None Cardiovascular Surgical History: Reports: None Respiratory Surgical History: Reports: None GI Surgical History: Reports: None Male Surgical History: Reports: Other (See Below) Other Male Surgeries/Procedures: cysto, placement of double J stent Endocrine Surgical History: Reports: None Neurological Surgical History: Reports: None Musculoskeletal Surgical History: Reports: None Oncologic Surgical History: Reports: None Dermatological Surgical History: Reports: None Social & Family History - Family History Family Medical History: Noncontributory - Caffeine Use Caffeine Use: Reports: None Caffeine Use Comment: 1-2 drinks/day - Recreational Drug Use Recreational Drug Use: No ED ROS GENERAL - Review of Systems Review Of Systems: ROS reveals no pertinent complaints other than HPI. ED EXAM, GENERAL - Physical Exam Exam: See Below (See dictation) Course - Vital Signs Last Recorded V/S: Last Vital Signs Temp 36.6 C 02/21/19 15:09 Pulse 105 H 02/21/19 15:09 Resp 16 02/21/19 15:09 BP 120/77 02/21/19 15:09 Pulse Ox 96 02/21/19 15:09 Departure - Departure Time of Disposition: 15:41 Disposition: Home, Self-Care 01 Condition: Good Clinical Impression: Lumbar strain - Discharge Information Referrals: PCP,None [Primary Care Provider] - Additional Instructions: The following information is given to patients seen in the emergency department who are being discharged to home. This information is to outline your options for follow-up care. We provide all patients seen in our emergency department with a follow-up referral. The need for follow-up, as well as the timing and circumstances, are variable depending upon the specifics of your emergency department visit. If you don't have a primary care physician on staff, we will provide you with a referral. We always advise you to contact your personal physician following an emergency department visit to inform them of the circumstance of the visit and for follow-up with them and/or the need for any referrals to a consulting specialist. The emergency department will also refer you to a specialist when appropriate. This referral assures that you have the opportunity for followup care with a specialist. All of these measure are taken in an effort to provide you with optimal care, which includes your followup. Under all circumstances we always encourage you to contact your private physician who remains a resource for coordinating your care. When calling for followup care, please make the office aware that this follow-up is from your recent emergency room visit. If for any reason you are refused follow-up, please contact the [facility] emergency department at and asked to speak to the emergency department charge nurse. Matias as directed follow-up primary medical doctor occupational medicine as needed as discussed and return as needed as discussed[]
== END 2019-02-21 15:50 | disposition home or self-care (01) ==
LOC: MW.ED 15:00
DX: S39.012A Strain of muscle, fascia and tendon of lower back, initial encounter (principal); X50.0XXA Overexertion from strenuous movement or load, initial encounter; Y99.9 Unspecified external cause status
CPT/HCPCS: 99283

== ENCOUNTER 2019-06-28 14:14 | Emergency (ER) | payer OTHER ==
--- NOTE | 2019-06-28 14:46 | EDM.PDOC ---
ED HPI GENERAL MEDICAL PROBLEM - General Chief Complaint: Flank Pain Stated Complaint: KIDNEY PAIN Time Seen by Provider: 06/28/19 14:43 Source of Information: Reports: Patient History Limitations: Reports: No Limitations - History of Present Illness INITIAL COMMENTS - FREE TEXT/NARRATIVE: HISTORY AND PHYSICAL: History of present illness: Patient is a 23-year-old male presents to the ED with complaint of kidney pain. He states it started week ago but has been bad the last 3 days. He reports a history of kidney stones. He states his urine has been dark but he has not noticed any sam blood. He has had nausea but denies fevers, chills, abdominal pain, chest pain, shortness of breath. Denies injury or trauma. Review of systems: As per history of present illness and below otherwise all systems reviewed and negative. Past medical history: As per history of present illness and as reviewed below otherwise noncontributory. Surgical history: As per history of present illness and as reviewed below otherwise noncontributory. Social history: No reported history of drug or alcohol abuse. Family history: As per history of present illness and as reviewed below otherwise noncontributory. Physical exam: General: Patient sitting comfortably in no acute distress and nontoxic appearing HEENT: Atraumatic, normocephalic, pupils reactive, negative for conjunctival pallor or scleral icterus, mucous membranes moist, throat clear, neck supple, nontender, trachea midline. No meningeal signs. Lungs: Clear to auscultation, breath sounds equal bilaterally, chest nontender. Heart: S1S2, regular, negative for clicks, rubs, or overt murmur. Abdomen: Soft, nondistended, nontender. Negative for masses or hepatosplenomegaly. Negative for costovertebral tenderness. No rigidity, rebound , guarding. Pelvis: Stable nontender. Genitourinary: Deferred. Rectal: Deferred. Extremities: Atraumatic, negative for cords or calf pain. Neurovascular unremarkable. Neuro: Awake, alert, oriented. Cranial nerves II through XII unremarkable. Cerebellum unremarkable. Motor and sensory unremarkable throughout. Exam nonfocal. Notes: Diagnostics: UA, CBC, CMP Therapeutics: [] Prescriptions: Flexeril Diclofenac Impression: Back pain Plan: Take medication as instructed Follow up with primary care provider Return to ED as needed as discussed Definitive disposition and diagnosis as appropriate pending reevaluation and review of above. left flank, right flank Pain Score (Numeric/FACES): 10 - Related Data Allergies Allergy/AdvReac Type Severity Reaction Status Date / Time No Known Allergies Allergy Verified 06/28/19 14:43 Home Meds: Home Meds Cyclobenzaprine [Flexeril] 10 mg PO DAILY PRN #10 tab 06/28/19 [Rx] Diclofenac Sodium [Voltaren] 75 mg PO BIDMEALS 10 Days #20 tab.cr 06/28/19 [Rx] QUEtiapine Fumarate [Seroquel] 400 mg PO BEDTIME 06/28/19 [History] traZODone HCl [Trazodone HCl] 150 mg PO BEDTIME 06/28/19 [History] Past Medical History - Past Health History Medical/Surgical History: Denies Medical/Surgical History HEENT History: Reports: None Cardiovascular History: Reports: Other (See Below) Other Cardiovascular History: " heart condition" Respiratory History: Reports: None Gastrointestinal History: Reports: Other (See Below) Other Gastrointestinal History: occasional heartburn Genitourinary History: Reports: Renal Calculus Musculoskeletal History: Reports: None Neurological History: Reports: None Psychiatric History: Reports: Anxiety Endocrine/Metabolic History: Reports: None Hematologic History: Reports: None Immunologic History: Reports: None Oncologic (Cancer) History: Reports: None Dermatologic History: Reports: None - Infectious Disease History Infectious Disease History: Reports: None - Past Surgical History Head Surgeries/Procedures: Reports: None HEENT Surgical History: Reports: None Cardiovascular Surgical History: Reports: None Respiratory Surgical History: Reports: None GI Surgical History: Reports: None Male Surgical History: Reports: Other (See Below) Other Male Surgeries/Procedures: cysto, placement of double J stent Endocrine Surgical History: Reports: None Neurological Surgical History: Reports: None Musculoskeletal Surgical History: Reports: None Oncologic Surgical History: Reports: None Dermatological Surgical History: Reports: None Social & Family History - Family History Family Medical History: Noncontributory - Caffeine Use Caffeine Use: Reports: None Caffeine Use Comment: 1-2 drinks/day ED ROS GENERAL - Review of Systems Review Of Systems: ROS reveals no pertinent complaints other than HPI. ED EXAM, GI/ABD - Physical Exam Exam: See Below (see dictation) Course - Vital Signs Last Recorded V/S: Last Vital Signs Temp 97.8 F 06/28/19 14:41 Pulse 80 10/03/19 14:41 Resp 16 06/28/19 14:41 BP 116/60 06/28/19 14:41 Pulse Ox 97 06/28/19 14:41 - Orders/Labs/Meds Labs: Laboratory Tests 06/28/19 06/28/19 06/28/19 Range/Units 14:49 14:57 14:57 WBC 7.03 (4.0-11.0) K/uL RBC 5.45 (4.50-5.90) M/uL Hgb 16.7 (13.0-17.0) g/dL Hct 47.9 (38.0-50.0) % MCV 87.9 (80.0-98.0) fL MCH 30.6 (27.0-32.0) pg MCHC 34.9 (31.0-37.0) g/dL RDW Std Deviation 43.2 (28.0-62.0) fl RDW Coeff of [place] 14 (11.0-15.0) % Plt Count 188 (150-400) K/uL MPV 11.40 (7.40-12.00) fL Neut % (Auto) 51.3 (48.0-80.0) % Lymph % (Auto) 37.4 (16.0-40.0) % Josephine % (Auto) 8.1 (0.0-15.0) % Eos % (Auto) 2.8 (0.0-7.0) % Baso % (Auto) 0.4 (0.0-1.5) % Neut # (Auto) 3.6 (1.4-5.7) K/uL Lymph # (Auto) 2.6 H (0.6-2.4) K/uL Josephine # (Auto) 0.6 (0.0-0.8) K/uL Eos # (Auto) 0.2 (0.0-0.7) K/uL Baso # (Auto) 0.0 (0.0-0.1) K/uL Nucleated RBC % 0.0 /100WBC Nucleated RBCs # 0 K/uL Sodium 144 (136-148) mmol/L Potassium 3.8 (3.5-5.1) mmol/L Chloride 106 (98-107) mmol/L Carbon Dioxide 25.0 (21.0-32.0) mmol/L BUN 11 (7.0-18.0) mg/dL Creatinine 1.1 (0.8-1.3) mg/dL Est Cr Clr Drug Dosing 106.30 mL/min Estimated GFR (MDRD) > 60.0 ml/min Glucose 76 (74-106) mg/dL Calcium 8.5 (8.5-10.1) mg/dL Total Bilirubin 1.0 (0.2-1.0) mg/dL AST 15 (15-37) IU/L ALT 16 (14-63) IU/L Alkaline Phosphatase 62 (46-116) U/L Total Protein 7.2 (6.4-8.2) g/dL Albumin 4.1 (3.4-5.0) g/dL Globulin 3.1 (2.6-4.0) g/dL Albumin/Globulin Ratio 1.3 (0.9-1.6) Urine Color YELLOW Urine Appearance CLEAR Urine pH 5.5 (5.0-8.0) Ur Specific [place] >= 1.030 (1.001-1.035) Urine Protein NEGATIVE (NEGATIVE) mg/dL Urine Glucose (UA) NEGATIVE (NEGATIVE) mg/dL Urine Ketones NEGATIVE (NEGATIVE) mg/dL Urine Occult Blood NEGATIVE (NEGATIVE) Urine Nitrite NEGATIVE (NEGATIVE) Urine Bilirubin NEGATIVE (NEGATIVE) Urine Urobilinogen 0.2 (<2.0) EU/dL Ur Leukocyte Esterase NEGATIVE (NEGATIVE) Departure - Departure Time of Disposition: 16:05 Disposition: Home, Self-Care 01 Condition: Good Clinical Impression: Back pain Qualifiers: Back pain location: thoracic back pain Chronicity: unspecified Back pain laterality: bilateral Qualified Code(s): M54.6 - Pain in thoracic spine - Discharge Information Prescriptions: Cyclobenzaprine [Flexeril] 10 mg PO DAILY PRN #10 tab PRN Reason: Pain (Severe 7-10) Diclofenac Sodium [Voltaren] 75 mg PO BIDMEALS 10 Days #20 tab.cr Referrals: PCP,Unknown [Primary Care Provider] - Forms: ED Department Discharge Additional Instructions: The following information is given to patients seen in the emergency department who are being discharged to home. This information is to outline your options for follow-up care. We provide all patients seen in our emergency department with a follow-up referral. The need for follow-up, as well as the timing and circumstances, are variable depending upon the specifics of your emergency department visit. If you don't have a primary care physician on staff, we will provide you with a referral. We always advise you to contact your personal physician following an emergency department visit to inform them of the circumstance of the visit and for follow-up with them and/or the need for any referrals to a consulting specialist. The emergency department will also refer you to a specialist when appropriate. This referral assures that you have the opportunity for follow-up care with a specialist. All of these measure are taken in an effort to provide you with optimal care, which includes your follow-up. Under all circumstances we always encourage you to contact your private physician who remains a resource for coordinating your care. When calling for follow-up care, please make the office aware that this follow-up is from your recent emergency room visit. If for any reason you are refused follow-up, please contact the [facility] at and asked to speak to the emergency department charge nurse. [facility] [address] [place] [id number] [id number] Take medication as instructed Follow up with primary care provider Return to ED as needed as discussed
[2019-06-28 15:52] LABS: BLOOD UREA NITROGEN,BUN 11 mg/dL (7.0-18.0); CHLORIDE,CL 106 mmol/L (98-107); GLUCOSE RANDOM 76 mg/dL (74-106); POTASSIUM,K 3.8 mmol/L (3.5-5.1); SODIUM,NA 144 mmol/L (136-148)
[2019-06-28 16:13] VITALS: BP 114/53; PULSE 70
== END 2019-06-28 16:22 | disposition home or self-care (01) ==
LOC: MW.ED 14:14
DX: M54.6 Pain in thoracic spine (principal)
CPT/HCPCS: 36415; 80053; 81003; 85025; 99284